=== PATIENT | female | born 1985 | race Caucasian/White ===

== ENCOUNTER → 2018-05-28 10:20 | Outpatient (CLI) | payer SELFPAY ==
[2018-05-28 15:47] LABS: Chlamydia Trachomatis by PCR Negative (Negative); Neisserai gonorrhoeae by PCR Negative (Negative); Probe Check PASS; Sample Adequacy Control PASS; Specimen Processing Control PASS
[2018-06-02 12:11] LABS: HPV Reflexed? NOT INDICATED
== END ==
PROVIDERS: Visit Provider Obstetrics & Gynecology
DX: Z12.4 Encounter for screening for malignant neoplasm of cervix (principal); Z11.3 Encounter for screening for infections with a predominantly sexual mode of transmission
CPT/HCPCS: 87491; 87591; 88175; G0145

== ENCOUNTER → 2018-06-10 | Outpatient (CLI) | payer SELFPAY ==
[2016-07-25 12:30] VITALS: BMI 31.1
[2018-06-10 15:43] LABS: Absolute Lymphocyte Count 2.04 X10^3/ul (0.83-4.51); Absolute Neutrophil Count 4.4 X10^3/uL (2.0-7.7); Basophil# 0.01 X10^3/uL; Basophil% 0.1 % (0-1); Eosinophil# 0.07 X10^3/uL; Hematocrit 36.7 % (37-47); Hemoglobin 12.5 g/dl (12.0-15.0); Lymphocyte # 2.04 X10^3/ul (4.0); Lymphocyte % 29.7 % (19-41); Mean Corp Hgb Conc 34.1 g/gl (32-36); Mean Corpuscular Hgb 30.1 pg (27.0-32.0); Mean Corpuscular Volume 88.4 fL (81-99); Mean Platelet Vol. 11.1 fl (6.2-12.0); Monocyte# 0.39 X10^3/uL; Monocyte% 5.7 % (0-10); Neutrophil # 4.37 X10^3/uL (2.7-7.7); Neutrophil % 63.5 % (47-70); Platelet Count 221 K/mm3 (150-450); RBC Distribution Width CV 11.9 % (11.6-14.6); RBC Distribution Width SD 37.7 fl (35.1-43.9); Red Blood Count 4.15 M/mm3 (4.2-5.4); White Blood Count 6.9 K/mm3 (4.4-11.0)
[2018-06-10 15:44] LABS: Color, Urine Yellow (Yellow); Glucose, Dipstick Normal (Normal); Ketone-Dipstick Negative (Negative); Leukocyte Esterase-Dipstick Negative /ul (Negative); Nitrite-Dipstick Negative (Negative); Occult Blood-Urine 25 /ul (Negative); Protein-Dipstick Negative (Negative); Specific Gravity, Urine 1.015 (1.002-1.030); Urine Bilirubin Dipstick Negative (Negative); Urine Clarity Clear (Clear); Urine Urobilinogen Normal (Normal)
[2018-06-10 15:46] LABS: POSITIVE COUNT NO; POSITIVE DIFFERENTIAL NO; POSITIVE MORPHOLOGY NO
[2018-06-10 16:08] LABS: COTININE Drug Screen Negative (<200 ng/mL)
[2018-06-10 16:09] LABS: Amphetamine Urine VISTA NEGATIVE (<1000 ng/mL); Barbiturate Urine VISTA NEGATIVE (< 200 ng/mL); Benzodiazepine Urine VISTA NEGATIVE (< 200 ng/mL); Cocaine Urine VISTA NEGATIVE (< 300 ng/mL); Ecstacy Urine VISTA NEGATIVE (< 500 ng/mL); Methadone Urine VISTA NEGATIVE (< 300 ng/mL); PCP Urine VISTA NEGATIVE (< 25 ng/mL); THC Urine VISTA NEGATIVE (< 50 ng/mL); Vista UDS pH Range 7
[2018-06-10 16:44] LABS: Thyroid Stim Hormone (TSH) 0.83 uIU/mL (0.358-3.74)
[2018-06-10 17:08] LABS: HIV - WCH Non-Reactive (Nonreactive); Rubella IgG 327.5 IU/mL; Vitamin D,25 Hydroxy 28.9 ng/mL (29.95-100.01)
[2018-06-12 15:58] LABS: HEPATITIS B SURFACE AG Negative (Negative); Hep C Antibodies 0.1 s/co ratio (0.0-0.9)
[2018-06-13 04:55] LABS: Prenatal RPR NONREACTIVE (NONREACTIVE)
== END | disposition home or self-care (01) ==
LOC: WOBLAB 14:49
PROVIDERS: Visit Provider Obstetrics & Gynecology
DX: Z34.81 Encounter for supervision of other normal pregnancy, first trimester (principal)
CPT/HCPCS: 36415; 80307; 81002; 82306; 84443; 85025; 86703; 86762; 86803; 87340

== ENCOUNTER → 2018-09-24 | Outpatient (CLI) | payer SELFPAY ==
[2018-09-24 13:44] LABS: Hematocrit 34.2 % (37-47); Hemoglobin 11.5 g/dL (12.0-15.0); Mean Corp Hgb Conc 33.6 g/dL (32-36); Mean Corpuscular Hgb 31.4 pg (27.0-32.0); Mean Corpuscular Volume 93.4 fL (81-99); Mean Platelet Vol. 10.7 fl (6.2-12.0); Platelet Count 211 K/mm3 (150-450); RBC Distribution Width CV 11.9 % (11.6-14.6); RBC Distribution Width SD 40.4 fl (35.1-43.9); Red Blood Count 3.66 M/mm3 (4.2-5.4); White Blood Count 7.9 K/mm3 (4.4-11.0)
[2018-09-24 13:56] LABS: ALB/GLOB Ratio 0.7 RATIO (0.9-2.4); AST(SGOT) 19 U/L (15-37); Alanine Aminotransfer ALT/SGPT 13 U/L (13-56); Albumin, Serum 2.8 g/dL (3.2-5.0); Alkaline Phosphatase 56 U/L (45-117); Anion Gap 5 (5-15); BUN 10 mg/dL (7-18); BUN/Creat Ratio 18.7 RATIO (10-20); Calcium,Total 8.4 mg/dL (8.5-10.1); Chloride 105 mmol/L (98-107); Creatinine, Serum 0.53 mg/dL (0.55-1.02); EST Glomerular Filtration Rate 141 mL/min (>60); Est Glom Filt Rate - Afr Amer 170 mL/min (>60); Globulin 3.8 g/dL (2.2-4.2); Glucose 91 mg/dL (74-106); Glucose Challenge Gest 1H 50g 91 mg/dL (70-140); Potassium 3.6 mmol/L (3.5-5.1); Protein, Total 6.6 g/dL (6.4-8.2); Sodium Level 137 mmol/L (136-145)
[2018-09-24 14:02] LABS: Protein, Urine (Random) 8.7 mg/dL (<11.9)
== END | disposition home or self-care (01) ==
LOC: WOBLAB 10:47
PROVIDERS: Visit Provider Obstetrics & Gynecology
DX: Z34.82 Encounter for supervision of other normal pregnancy, second trimester (principal)
CPT/HCPCS: 36415; 80053; 82570; 82950; 84156; 85027

== ENCOUNTER → 2018-11-28 | Outpatient (CLI) | payer SELFPAY ==
[2018-11-28 16:25] LABS: Protein, Urine (Random) 46.9 mg/dL (<11.9)
[2018-11-28 17:06] LABS: Hematocrit 35.4 % (37-47); Hemoglobin 11.4 g/dL (12.0-15.0); Mean Corp Hgb Conc 32.2 g/dL (32-36); Mean Corpuscular Hgb 30.2 pg (27.0-32.0); Mean Corpuscular Volume 93.9 fL (81-99); Mean Platelet Vol. 11.1 fl (6.2-12.0); Platelet Count 204 K/mm3 (150-450); RBC Distribution Width CV 12.9 % (11.6-14.6); RBC Distribution Width SD 44.2 fl (35.1-43.9); Red Blood Count 3.77 M/mm3 (4.2-5.4); White Blood Count 8.6 K/mm3 (4.4-11.0)
[2018-11-28 17:17] LABS: ALB/GLOB Ratio 0.7 RATIO (0.9-2.4); AST(SGOT) 20 U/L (15-37); Alanine Aminotransfer ALT/SGPT 14 U/L (13-56); Albumin, Serum 2.6 g/dL (3.2-5.0); Alkaline Phosphatase 68 U/L (45-117); Anion Gap 7 (5-15); BUN 9 mg/dL (7-18); BUN/Creat Ratio 15.3 RATIO (10-20); Calcium,Total 8.9 mg/dL (8.5-10.1); Chloride 105 mmol/L (98-107); Creatinine, Serum 0.59 mg/dL (0.55-1.02); EST Glomerular Filtration Rate 126 mL/min (>60); Est Glom Filt Rate - Afr Amer 153 mL/min (>60); Globulin 3.6 g/dL (2.2-4.2); Glucose 100 mg/dL (74-106); Potassium 3.4 mmol/L (3.5-5.1); Protein, Total 6.2 g/dL (6.4-8.2); Sodium Level 140 mmol/L (136-145); Uric Acid 4.5 mg/dL (2.6-6.0)
== END | disposition home or self-care (01) ==
PROVIDERS: Visit Provider Obstetrics & Gynecology
DX: O13.9 Gestational [pregnancy-induced] hypertension without significant proteinuria, unspecified trimester (principal); Z36.85 Encounter for antenatal screening for Streptococcus B; Z3A.00 Weeks of gestation of pregnancy not specified
CPT/HCPCS: 36415; 80053; 82570; 84156; 84550; 85027; 87081

== ENCOUNTER 2018-12-22 09:57 | Inpatient (IN) | payer SELFPAY ==
[2018-12-22] VITALS (18 sets, daily range): BP systolic 103–138; BP diastolic 46–83; PULSE 65–108; RESP 11–18; TEMP 35.8–37.2; O2SAT 96–99; BMI 32.2
[2018-12-22] MEDS: Lactated Ringers 1,000 ML 999 ML IV (10:15)
[2018-12-22 10:27] LABS: Absolute Lymphocyte Count 1.54 X10^3/uL (0.83-4.51); Absolute Neutrophil Count 5.9 X10^3/uL (2.0-7.7); Basophil# 0.02 X10^3/uL; Basophil% 0.2 % (0-1); Eosinophil# 0.06 X10^3/uL; Eosinophils% 0.7 % (0-5); Hemoglobin 11.6 g/dL (12.0-15.0); Lymphocyte # 1.54 X10^3/ul (4.0); Lymphocyte % 18.8 % (19-41); Mean Corp Hgb Conc 33.1 g/dL (32-36); Mean Corpuscular Hgb 30.9 pg (27.0-32.0); Mean Corpuscular Volume 93.1 fL (81-99); Mean Platelet Vol. 11.1 fl (6.2-12.0); Monocyte# 0.65 X10^3/uL; Monocyte% 7.9 % (0-10); NRBC Flagged by Analyzer 0 % (0-5); Neutrophil # 5.88 X10^3/uL (2.7-7.7); Platelet Count 165 K/mm3 (150-450); RBC Distribution Width CV 13.3 % (11.6-14.6); RBC Distribution Width SD 45.8 fl (35.1-43.9); Red Blood Count 3.76 M/mm3 (4.2-5.4); White Blood Count 8.2 K/mm3 (4.4-11.0)
[2018-12-22] MEDS: Lactated Ringers 1,000 ML 150 ML IV (11:40)
[2018-12-22] MEDS: Sodium Citrate/Citric Acid 30 ML UDC PO (11:50)
[2018-12-22] MEDS: Cefazolin 2 GM in 0.9% Normal Saline 100 ML IV (12:05)
--- NOTE | 2018-12-22 12:10 | HP.PCM_ITS ---
- Problem List (1) 39 weeks gestation of Status: Acute History Date of Admission: 12/22/18 Final SONAM: 12/24/18 Gestational age: 41 Weeks and 6 Days History of this : This is a 33 year-old, G [3], P [2001], at 39 weeks gestational age presenting for scheduled repeat section. 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 % (Auto) 7.9 Eos % (Auto) 0.7 Baso % (Auto) 0.2 Absolute Neuts (auto) 5.9 Absolute Lymphs (auto) 1.54 Nucleated RBC % 0 Blood Type A POSITIVE Antibody Screen NEGATIVE Course Did the patient receive Yes care? Labs Blood Type: A RH: POSITIVE RPR/VDRL/Syphilis Nonreactive Rubella status Immune HbSAg Negative Date Done: 06/10/18 Chlamydia Negative Gonorrhea Negative HIV/AIDS Non-Reactive Group B Strep: Negative Current Obstetrical History Gestational Diabetes No Incompetent Cervix No Infertility No IUGR No Macrosomia No Hypertension/Pre-eclampsia No Placenta Previa/Abruption No PTL/PROM No Uterine anomaly No Oligohydramnios No Polyhydramnios No Multiple gestation No Past Medical History Asthma No Diabetes No Hypertension No Heart disease No Mitral valve prolapse No Neurologic/Seizure disorder/ No Migraines Kidney disease No Liver disease No Varicosities No Clotting disorders/Hx of DVT No Thyroid Dysfunction No Other medical diseases No Psychiatric disorders No Major trauma No Abnormal PAP smear No Sleep apnea No Mammogram in the last 2 years No Enter DETAILS of medical bladder adhesions- history Social History Marital Status: Alleged father antoinette [place] Hx Smoking No Smoking Status Never smoker Expected Delivery Method: Scheduled Section, Repeat Section Number of Visits: 14 Physical Exam Vitals: AVSS General: Alert, Oriented x3, Cooperative, No apparent distress HEENT: Atraumatic, Normocephalic Cardiovascular: Regular rate, Regular Rhythm, Normal S1, Normal S2 Lungs: Clear to auscultation, Normal air movement Abdomen: Soft, Non Tender, Non-Distended Neurological: Neuro grossly intact COMPENSATION AND BENEFITS ADMINISTRATOR: Normal external genitalia Estimated gestational size: Appropriate for gestational size Presentation: Cephalic Assessment/Plan All Active Problems Delivered by section (Acute) 39 weeks gestation of (Acute) Left breast mass (Resolved) This is a 33 year-old, G 3 P 2001, at 39 4/7 weeks gestational age. Proceed with repeat section as scheduled. Consents previously signed, reviewed.
--- NOTE | 2018-12-22 13:05 | PCM.OPRPT ---
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 Procedural risks, benefits, indication were reviewed preoperatively. Informed consent obtained. Indications for : Repeat Elective Description of Procedure: The patient was taken to the operating room and spinal analgesia was administered. She is placed in a dorsal supine position with left lateral tilt. The perineum and abdomen were prepped and draped in sterile fashion. And the spinal was found to be adequate. A Pfannenstiel incision was made using a scalpel and brought down to incise the subcutaneous tissue and rectus fascia at the midline. Subcutaneous tissue was bluntly dissected off the fascia laterally. The fascial incision was dissected laterally and cephalad using curved Albert scissors. The superior leaflet of the rectus fascia was grasped using Reina clamps and bluntly dissected and sharply dissected from the underlying rectus muscle. In a similar fashion the inferior rectus fascia was dissected from the underlying muscle. The rectus muscles were bluntly at the midline. The peritoneum was identified and entered bluntly. The bladder blade was placed into the abdomen and the vesicouterine peritoneal fold identified. There were lateral peritoneal adhesions ending from the bladder flap to to the left adnexa. These were sharply and bluntly dissected. The vesico uterine peritoneal fold the fold was incised and a bladder flap created. Bladder blade was then repositioned to the abdomen. A low transverse hysterotomy was made using the [Metzenbaum scissors] to level of the membranes. The hysterotomy was extended bluntly cephalad and caudad. The membranes were then ruptured revealing clear fluid. The head was elevated and brought to the level of the hysterotomy and the infant delivered revealing vigorous [female] infant. The cord was doubly clamped and cut after 30 seconds. The was passed to awaiting [nursery personnel]. The placenta was [expressed] from the uterus and appeared intact on inspection with what appeared to be old clot extruded and an approximately 5 cm round retroplacental clot.The uterus was cleared of debris and gauze curettage formed for adherent membranes to the inferior lower uterine segment. Membranes were removed entirely. The hysterotomy was then repaired using 0 Vicryl running lock suture. A second imbricating layer was also placed for additional hemostasis. Bleeding at the vesicoperitoneal fold was controlled using Surgicel powder. The bladder blade was removed. The anterior cul-de-sac was cleared of debris. The peritoneum and rectus muscles were reapproximated using 2-0 Vicryl running suture. The rectus fascia was closed using 0 Vicryl running suture. The subcutaneous tissue was sponge irrigated and small capillary bleeding controlled using the Bovie device. The subcutaneous tissue was reapproximated using 2-0 Vicryl. The skin was closed using 4-0 Monocryl subcuticularly. A Mepilex occlusive dressing was placed over the incision. The fundus was firm. The patient was then transferred to the recovery room without complication. Sponge, instrument, and needle counts were correct ?2. Amniotic Membrane Rupture Type: Artificial Amniotic Fluid Description: Clear Placenta Disposition: [facility] Specimen(s) sent to pathology: Placenta Drain: Borrego to straight drain Fluids Replaced: 1200 mL Cord Entanglement: - - Around left arm Nuchal Cord Compression: Without compression Cord Vessel Description: 3 Vessels Esitmated Blood Loss (ml): 800 Gender: Female (1 minute): 9 (5 minute): 9 Delayed cord clamping: Yes Antibiotic Given: Ancef 2 grams IV x1 Pt instructed on risks of surgery: Bleeding, Anesthesia Risks, Infection, Need for Future C-Sections, Injury to surrounding structure(s) including bowel and bladder Complications: None - Admit VTE Documentation VTE Present on Admission: No VTE Mechan Device Prophylaxis: SCD's VTE Pharm Prophylaxis ordered?: No
--- NOTE | 2018-12-22 13:22 | PLAC_PTH ---
PATIENT: NAN CALLAHAN LOC: [facility] U#:[id number] AGE/SX: 33/F ROOM: WP008 RE12/22/[address]: Dr. Margarita Delgado MD : 1985 BED: 1 DIS: 12/24/2018 SPEC #: [id number] RECD: 12/22/18 15:35 STATUS: AMANDA REQ #: [id number] ERIN: 12/22/18 13:[address]: Margarita Yu DEPT: SURGICAL PATHOLOGY RECD BY: Chris Frazier ENTERED: 12/23/18 08:49 SP TYPE: PLACENTA OTHR DR: No Primary Care Phys Tissues: Placenta, NOS Procedures: Surgery Specimen Level V HEADER OPERATION: section PRE-OP DIAGNOSIS: History second trimester bleed with retro placenta clot TISSUE SUBMITTED: Placenta MICROSCOPIC DIAGNOSIS Placenta: Placental disc - third trimester placenta (553 gm). - Focal area of intraparenchymal hemorrhage (1.5 cm in greatest dimension). - Submembranous blood clots, surface (10 x 5 cm). - A few separate blood clots (15 gm). Membranes - no pathologic diagnosis. Umbilical cord - three blood vessels and no pathologic diagnosis. SJ:jing 12/25/18 MICROSCOPIC DESCRIPTION Slides are reviewed. GROSS DESCRIPTION SPECIMEN: PLACENTA / CLINICAL INFORMATION: A. Weight: 3.064 kg B. Gestational Age: 39 weeks C. Sex: Female PLACENTAL WEIGHT (POST FIXATION): 553 gm PLACENTAL DIMENSIONS: 20 x 16 x 3.5 cm PLACENTAL SHAPE: Usual ovoid PLACENTAL WEIGHT FOR GESTATIONAL AGE: Within 10-99th percentile MEMBRANES - Present A. Insertion: Marginal B. Site of rupture from edge: At edge of placental disc C. Color of membrane: Taylor-medina D. Abnormalities: None UMBILICAL CORD - Present A. Color: Taylor-medina B. Insertion: Paracentral C. Length: 24 cm D. Diameter: 1 to 1.2 cm E. Number of vessels: Three F. Abnormalities: end of the umbilical cord shows increased spiraling. PLACENTAL DISC - Present A. Color of surface: Taylor-medina B. surface abnormalities: It shows submembranous blood clots measuring 10 x 5 cm. C. Maternal cotyledons: Intact with minimal tears D. Attached retro placental clot: No clot E. Cut surface: Dark red and spongy F. Lesions: Sections reveal a taylor, hemorrhagic area measuring 1.5 cm in greatest dimension. G. Separate clot: Blood clots in aggregate weighs 15 gm and measures 10 x 3 x 3 cm SECTIONS SUBMITTED: 1. Membrane roll 2. Cord, maternal end 3. Cord, end 4. Placental disc, and maternal surfaces, lesion 5. Placental disc, and maternal surfaces, area of placenta with submembranous blood clot 6. Placental disc, and maternal surfaces SJ:jing 12/24/18 TC:5 CPT: 47923
[2018-12-22] MEDS: Oxytocin 30 units/NS 500 ml 30 UNITS/500 ML IV.SOLN 167 UNITS IV (13:30)
[2018-12-22] MEDS: Lactated Ringers 1,000 ML 100 ML IV (16:30)
[2018-12-22] MEDS: Ketorolac 30 MG/ML Syringe IV (18:53)
[2018-12-23] VITALS (10 sets, daily range): BP systolic 104–125; BP diastolic 58–78; PULSE 80–89; RESP 14–18; TEMP 36.2–36.8; O2SAT 96–100
[2018-12-23] MEDS: Ketorolac 30 MG/ML Syringe IV ×4 (00:16→18:25)
[2018-12-23] MEDS: Lactated Ringers 1,000 ML 100 ML IV (02:21)
[2018-12-23 07:48] LABS: Hematocrit 32.2 % (37-47); Hemoglobin 10.8 g/dL (12.0-15.0); Mean Corp Hgb Conc 33.5 g/dL (32-36); Mean Corpuscular Hgb 32.1 pg (27.0-32.0); Mean Corpuscular Volume 95.8 fL (81-99); Mean Platelet Vol. 11.2 fl (6.2-12.0); Platelet Count 133 K/mm3 (150-450); RBC Distribution Width CV 13.6 % (11.6-14.6); RBC Distribution Width SD 47.8 fl (35.1-43.9); Red Blood Count 3.36 M/mm3 (4.2-5.4); White Blood Count 7.2 K/mm3 (4.4-11.0)
--- NOTE | 2018-12-23 08:46 | PCM.PN.OB ---
Patient Problems: Active and Suspected Problems 39 weeks gestation of (Acute) Subjective: No issues overnight. Infant has tongue-tie, not nursing well. Ruthann is sore this morning. Passing flatus, oob and ambulating without difficulty. Denies heavy lochia. - Physical Exam Vitals/I&O's: Vital Signs Temp Pulse Resp BP Pulse Ox 97.8 F 87 18 104/58 L 98 12/23/18 04:00 12/23/18 04:00 12/23/18 06:00 12/23/18 04:00 12/23/18 06:00 Oxygen Delivery Method Room Air Weight: 87.9 kg Body Mass Index (BMI) 32.2 Intake and Output for Last 24 Hours 12/21/18 12/22/18 12/23/18 23:59 23:59 23:59 Intake Total 1647.5 / 1647.5 985 / 985 Output Total 425 / 425 800 / 800 Balance 1222.5 / 1222.5 185 / 185 General: Alert, Oriented x3, Cooperative, No apparent distress HEENT: Atraumatic, Normocephalic Lungs: Clear to auscultation, Normal air movement Cardiovascular: Regular rate, Regular Rhythm, Normal S1, Normal S2 Abdomen: Soft, Non Tender, Non-Distended Extremities: No edema, No Calf Tenderness Neurological: Neuro grossly intact Psych/Mental Status: Normal Affect, Appropriate, Alert and oriented to time, place, person, mood and affect Laboratory Results 12/22/18 10:15: WBC 8.2, RBC 3.76 L, Hgb 11.6 L, Hct 35.0 L, MCV 93.1, MCH 30.9, MCHC 33.1, RDW Std Deviation 45.8 H, RDW Coeff of Nae 13.3, Plt Count 165, MPV 11.1, Immature Gran % (Auto) 0.400, Neut % (Auto) 72.0 H, Lymph % (Auto) 18.8 L, [place] % (Auto) 7.9, Eos % (Auto) 0.7, Baso % (Auto) 0.2, Absolute Neuts (auto) 5.9, Absolute Lymphs (auto) 1.54, Nucleated RBC % 0 12/22/18 10:15: Blood Type A POSITIVE, Antibody Screen NEGATIVE 12/23/18 07:30: WBC 7.2, RBC 3.36 L, Hgb 10.8 L, Hct 32.2 L, MCV 95.8, MCH 32.1 H, MCHC 33.5, RDW Std Deviation 47.8 H, RDW Coeff of Nae 13.6, Plt Count 133 L, MPV 11.2 Current Medications Acetaminophen (Tylenol) 1,000 mg PO Q8H PRN PRN Reason: Pain Score 1-3/10 Bisacodyl (Dulcolax) 10 mg RECTAL UD PRN PRN Reason: If no BM Hydrocortisone (Hytone) 1 applic TOPICAL TID PRN PRN; Protocol PRN Reason: Discomfort Lactated Ringer's () 1,000 mls @ 100 mls/hr IV .Q10H [facility] Last Admin: 12/23/18 02:21 Dose: 100 mls/hr Documented by: Naloxone HCl 4 mg/ Dextrose 504 mls @ 0 mls/hr IV .Q0M PRN; Protocol PRN Reason: Respiratory depression Ibuprofen (Motrin) 600 mg PO Q6H PRN PRN PRN Reason: Pain Score 1-3/10 Ketorolac Tromethamine (Toradol) 30 mg IV Q6 [facility] Stop: 12/24/18 12:01 Last Admin: 12/23/18 07:30 Dose: 30 mg Documented by: Methylergonovine Maleate (Methergine) 0.2 mg IM X1 PRN PRN Reason: Uterine Atony Nalbuphine HCl (Nubain) 5 mg IV Q3H PRN PRN PRN Reason: ITCHING Stop: 12/23/18 13:49 Naloxone HCl (Narcan) 0.02 mg IV Q1M PRN PRN Reason: RR <10 and pt unresponsive Ondansetron HCl (Zofran) 4 mg IV Q4H PRN PRN PRN Reason: Nausea Oxycodone HCl (Oxyir) 5 - 10 mg PO Q4H PRN PRN PRN Reason: Pain Score 4-10/10 Multivit/Folic Acid/Iron (Prenatabs Fa) 1 tablet PO DAILY [facility] Prochlorperazine Edisylate (Compazine Iv) 10 mg IV Q6H PRN PRN PRN Reason: NAUSEA Senna/Docusate Sodium (Senokot-S, Ines-Colace) 0 tablet PO DAILY PRN PRN Reason: Constipation Simethicone (Mylicon) 80 mg PO PCHS PRN PRN Reason: Indigestion/stomach pain Sodium Chloride () 5 - 15 ml IV UD PRN PRN Reason: SALINE FLUSH Medical Necessity - Tobacco Use Smoking Status: Never smoker Assessment/Plan All Active Problems Delivered by section (Acute) 39 weeks gestation of (Acute) Left breast mass (Resolved) This is a 33 year-old, G 3 P3003 POD#1 s/p RLTCS doing well. -Routine postop care -Rh positive, Rubella immune -, outpatient ENT consultation pending
[2018-12-23] MEDS: Senna/Docusate Sodium 1 Tablet PO (12:37)
[2018-12-23] MEDS: Prenatal Vits Tablet 1 TABLET PO (12:37)
[2018-12-23] MEDS: 0.9% Saline Lock 10 ML Syringe IV ×2 (12:38→18:24)
[2018-12-24] MEDS: Ketorolac 30 MG/ML Syringe IV ×3 (00:52→12:11)
[2018-12-24] MEDS: 0.9% Saline Lock 10 ML Syringe IV ×3 (00:53→12:12)
[2018-12-24 02:05] VITALS: BP 107/50; PULSE 78; RESP 16
[2018-12-24] MEDS: oxyCODONE 5 MG Tablet PO ×3 (04:36→12:11)
[2018-12-24 08:00] VITALS: BP 117/74; PULSE 78; RESP 18; TEMP 36.6; O2SAT 98
[2018-12-24] MEDS: Senna/Docusate Sodium 1 Tablet PO (08:20)
[2018-12-24] MEDS: Prenatal Vits Tablet 1 TABLET PO (10:28)
--- NOTE | 2018-12-24 15:15 | PCM.DCCSEC ---
Discharge Diet: No Restrictions Discharge Activity: Return to Normal Activity, May not drive while taking narcotic pain medications., May Shower, - - No tub bath May resume sexual activity in: 4-6 weeks Lifting Restrictions: 10-20 lb Suture Line Care: Avoid Pulling/Pushing Remove Dressing in (days):: 3 Cleanse incision/area with: Soap & Water Additional Instructions: If you experience any of the following, contact your healthcare provider. Bleeding that soaks a pad every hour for 2 hours Fever 100.4 or higher Unrelieved incision or abdominal pain Swelling, redness, discharge or bleeding from your incision or episiotomy site Your incision begins to separate Problems urinating (including inability to urinate or burning while urinating). Visual changes Severe headache Flu-like symptoms Pain or redness in one of both of your breasts Pain, warmth, tenderness or swelling in your legs, especially the calf area Frequent nausea and vomiting Symptoms of depression or anxiety If you experience any of the following, call 911 or go to the nearest Emergency Room. Chest pain Problems breathing Seizure activity Partial or complete paralysis of a body part, slurred speech, weakness or drooping of the face, or a sudden inability to walk or hold your balance Allergies/Adverse Reactions: Allergies No Known Allergies Allergy (Verified 03/06/16 07:06) Medications to take at Discharge Vits [Prenatabs FA ] 1 tablet PO DAILY 03/06/16 Ferrous Sulfate [Iron] 325 mg PO DAILY 12/22/18 Ibuprofen [Motrin] 600 mg PO Q8H PRN PRN #30 tab 12/24/18 Oxycodone [Oxyir] 1 tab BC Q6H PRN 7 Days #20 tab 12/24/18 Senna/Docusate Sodium [Senokot-S] 1 - 2 tab PO DAILY PRN #60 tab 12/24/18 The following prescriptions were given: Ibuprofen [Motrin] 600 mg PO Q8H PRN PRN #30 tab PRN Reason: Pain Score 1-3/10 Transmission Status: Received by [id number] Oxycodone [Oxyir] 1 tab BC Q6H PRN 7 Days #20 tab PRN Reason: Pain Score 4-10/10 Transmission Status: Received by [id number] Senna/Docusate Sodium [Senokot-S] 1 - 2 tab PO DAILY PRN #60 tab PRN Reason: Constipation Transmission Status: Received by [id number] Follow-Up: Call to make an appointment with your doctor for an incision check in 1-2 weeks. You will also need a 6 week post- follow up appointment. Test results from this visit will be discussed in further detail at your follow-up appointment, if applicable. Please Follow Up With: Margarita Pyle MD When: 2 weeks for incision check Primary Care Physician: Care Physician,No Primary [Primary Care Provider] -
[2018-12-25 15:05] LABS: Pathology Specimen OB SEE PATHOLOGY REPORT
== END 2018-12-24 12:25 | disposition home or self-care (01) | DRG 788 ==
PROVIDERS: Admitting Provider Obstetrics & Gynecology; Referring Provider Obstetrics & Gynecology; Visit Provider Obstetrics & Gynecology
PROC: 10D00Z1 Extraction of Products of Conception, Low, Open Approach (ICD-10-PCS; CPT 59514; principal; 2018-12-22 11:45)
DX: O82 Encounter for cesarean delivery without indication (principal); Z3A.39 39 weeks gestation of pregnancy; Z37.0 Single live birth; O69.81X0 Labor and delivery complicated by cord around neck, without compression, not applicable or unspecified
CPT/HCPCS: 85025; 85027; 86850; 86900; 86901; 88307; 99218; J7120; A4216; G0378; J2405

== ENCOUNTER → 2020-04-29 09:17 | Outpatient (CLI) | payer SELFPAY ==
[2018-12-22 10:03] VITALS: BMI 32.2
[2020-04-29 11:28] LABS: Absolute Lymphocyte Count 1.64 X10^3/uL (0.83-4.51); Absolute Neutrophil Count 3.8 X10^3/uL (2.0-7.7); Basophil# 0.03 X10^3/uL; Basophil% 0.5 % (0-1); Eosinophil# 0.07 X10^3/uL; Eosinophils% 1.2 % (0-5); Hematocrit 39.8 % (37-47); Hemoglobin 12.8 g/dL (12.0-15.0); Lymphocyte # 1.64 X10^3/ul (4.0); Mean Corp Hgb Conc 32.2 g/dL (32-36); Mean Corpuscular Hgb 29.6 pg (27.0-32.0); Mean Corpuscular Volume 91.9 fL (81-99); Mean Platelet Vol. 11.2 fl (6.2-12.0); Monocyte# 0.34 X10^3/uL; Monocyte% 5.8 % (0-10); NRBC Flagged by Analyzer 0 % (0-5); Neutrophil # 3.75 X10^3/uL (2.7-7.7); Neutrophil % 64.2 % (47-70); Platelet Count 214 K/mm3 (150-450); RBC Distribution Width SD 40.4 fl (35.1-43.9); Red Blood Count 4.33 M/mm3 (4.2-5.4); White Blood Count 5.9 K/mm3 (4.4-11.0)
[2020-04-29 12:16] LABS: HIV - WCH Non-Reactive (Nonreactive); Hepatitis B Surface Antigen Non-Reactive (Nonreactive); Hepatitis C Antibody Non-Reactive (Nonreactive); Rubella IgG Reactive (Nonreactive); Syphilis Antibodies Non-reactive
[2020-05-02 20:07] LABS: Chlamydia By Nucleic Acid AMP Negative (Negative)
[2020-05-02 20:52] LABS: Gonococcus By Nucleic Acid AMP Negative (Negative)
== END ==
PROVIDERS: Visit Provider Student in an Organized Health Care Education/Training Program
DX: Z32.01 Encounter for pregnancy test, result positive (principal)
CPT/HCPCS: 36415; 85025; 86703; 86762; 86803; 87086; 87340; 87491; 87591

== ENCOUNTER 2020-06-23 08:30 | Day surgery (SDC) | payer SELFPAY ==
[2018-12-22 10:03] VITALS: BMI 32.2
[2020-06-23] VITALS (7 sets, daily range): BP systolic 109–123; BP diastolic 73–81; PULSE 63–92; RESP 16–18; TEMP 36.6–37.7; O2SAT 98–100; BMI 27.4
[2020-06-23 09:04] LABS: Hematocrit 39.8 % (37-47); Hemoglobin 13.2 g/dL (12.0-15.0); Mean Corp Hgb Conc 33.2 g/dL (32-36); Mean Corpuscular Hgb 30.3 pg (27.0-32.0); Mean Corpuscular Volume 91.3 fL (81-99); Mean Platelet Vol. 10.3 fl (6.2-12.0); Platelet Count 200 K/mm3 (150-450); RBC Distribution Width CV 11.8 % (11.6-14.6); RBC Distribution Width SD 39.7 fl (35.1-43.9); Red Blood Count 4.36 M/mm3 (4.2-5.4); White Blood Count 6.1 K/mm3 (4.4-11.0)
[2020-06-23] MEDS: Lactated Ringers 1,000 ML 100 ML IV ×2 (09:14→11:53)
--- NOTE | 2020-06-23 10:28 | PCM.HPOB.BLA ---
History and Physical Date of Admission: 06/23/20 HPI: 34-year-old G4, P3 presenting for suction D&C for spontaneous . SAB diagnosed on 06/21/2021 on ultrasound. Patient had due date of 12/08/2020, was only measuring 11 weeks and 2 days on ultrasound this week when should have measured 15/5. On earlier ultrasound as well as this some noted frontal bossing of the calvarium was noted. Ultrasound on this day was planned for follow-up to then determine for MFM consult or not. However on ultrasound no heart rate detected by instrument technician apprentice and confirmed by myself. Options for management were discussed, patient elected for suction dilation and curettage. This is complicated by: spontaneous Obstetrical History SONAM 12/08/20 by LMP G1: 2014 c/s G2: 07/26/16 ([facility]M) G3: 12/22/18 Female ([facility]M) G4: curent Past Medical History Hypertension Medications PNV Past Surgical History section x3 Social History Tobacco use: Denies Alcohol use: Denies Illicit drug use: Denies Allergies No known drug allergies Review of Systems General: alert and oriented HEENT: _denies change of vision Heart/lungs: _denies CP, SOB GI: _denies nausea, vomiting, dysuria, diarrhea MSK: _denies calf pain, tenderness Physical Exam Vital Signs Temp Pulse Resp BP Pulse Ox 06/23/20 09:08 99.8 F H 92 18 116/81 H 100 General: a&o x3, NAD HEENT: normocephalic, atraumatic Cardio: no JVD Resp: no increased work in breathing Abdomen: soft, gravid, nontender Extremities: No edema Labs Microbiology 06/23/20 08:50 SARS-CoV-2 Antigen (Rapid) - Final Interface Orders Laboratory Tests 06/23/20 06/23/20 Range/Units 09:00 09:00 WBC 6.1 (4.4-11.0) K/mm3 RBC 4.36 (4.2-5.4) M/mm3 Hgb 13.2 (12.0-15.0) g/dL Hct 39.8 (37-47) % MCV 91.3 (81-99) fL MCH 30.3 (27.0-32.0) pg MCHC 33.2 (32-36) g/dL RDW Std Deviation 39.7 (35.1-43.9) fl RDW Coeff of Nae 11.8 (11.6-14.6) % Plt Count 200 (150-450) K/mm3 MPV 10.3 (6.2-12.0) fl Blood Type A POSITIVE Antibody Screen NEGATIVE Assessment & Plan 34-year-old G4, P3 presenting for suction D&C for spontaneous . All risks, benefits, risks, alternatives were discussed with the patient. Risks include but are not limited to: Risk of bleeding to the point of transfusion, infection, injury to surrounding tissue including bowel or bladder, uterine perforation, VTE, ICU admission. Patient aware and consented. Patient declined any genetic or Anora testing.
--- NOTE | 2020-06-23 10:30 | POC_PTH ---
PATIENT: NAN CALLAHAN LOC: [facility] [place] U#:[id number] AGE/SX: 34/F ROOM: RE06/23/[address]: Dr. Mary Jane Patel DO : 1985 BED: DIS: 06/23/2020 SPEC #: [id number] RECD: 06/23/20 13:54 STATUS: AMANDA REJaydon #: [id number] ERIN: 06/23/20 10:[address]: Mary Jane Patel DEPT: SURGICAL PATHOLOGY RECD BY: Nedra Tolbert ENTERED: 06/24/20 08:10 SP TYPE: PROD CONC OTHR DR: No Primary Care Phys Tissues: Product of conception, NOS Procedures: Surgery Specimen Level IV HEADER OPERATION: Suction dilation and curettage PRE-OP DIAGNOSIS: Spontaneous TISSUE SUBMITTED: Products of conception MICROSCOPIC DIAGNOSIS Endometrium, curettage: Chorionic villi, decidualized stroma and trophoblastic cells consistent with products of conception. AM:jing 06/27/2020 MICROSCOPIC DESCRIPTION Slides are reviewed. GROSS DESCRIPTION Received in fixative is one container labeled with the patient's name and designated products of conception. The specimen consists of multiple irregular and hemorrhagic fragments of soft tissue that in aggregate measure 8 x 7 x 0.8 cm. The specimen is totally submitted in one cassette. / AM:jing 06/24/20 TC:5 CPT: 79244
--- NOTE | 2020-06-23 10:41 | PCM.OPRPT ---
Report of Operation Date of Procedure: 06/23/20 Pre-Operative Diagnosis: Spontaneous Post-Operative Diagnosis: Spontaneous Surgery/Procedure Performed:: Suction dilation and curettage Description of Surgical Findings:: Normal-appearing external genitalia. Products of conception removed. Type of Anesthesia:: MAC Specimen's removed: Products of conception Estimated Blood Loss (mL): 100 cc Fluids Replaced: 650 cc Description of Procedure: Indications/risk benefits: 34-year-old with spontaneous . SONAM 12/08/2020. Diagnosed at 15/5 weeks, measuring 11/2 weeks without heart rate. Decision for suction dilation and curettage made. All risk, benefits, alternatives were discussed with the patient. Risks include but are not limited to: Risk of bleeding to the point of transfusion, infection, injury to surrounding tissue including bowel or bladder, uterine perforation, VTE, ICU admission. Patient consented. Declined Anora or genetic testing. Procedure: Patient taken to the operating room, MAC anesthesia induced. Patient placed in the dorsal lithotomy position and prepped and draped in the usual sterile fashion. Weighted speculum placed in posterior vagina and Rios retractor used to visualize the cervix. Anterior lip of the cervix grasped with Allis clamp. Cervix sequentially dilated. 11 mm curette chosen. Suction tubing covered with probe covering. Suction curettage completed in 360 degree manner until all products of conception removed. Some products of conception noted at the cervical os which were grasped with forceps and removed. Suction curettage repeated. Ultrasound utilized to confirm no further products remaining in the uterine cavity. No blood flow noted on color. Endometrial lining thin. Some oozing coming from the cervical os was noted, therefore 0.2 mg Methergine given IM. Bimanual massage completed. Oozing stopped. Allis clamp removed and weighted speculum removed. Hemostasis noted. Of the procedure all needle, lap, sponge counts correct x3. Urine output: 600 cc - Complications None - Admit VTE Documentation VTE Mechan Device Prophylaxis: SCD's
--- NOTE | 2020-06-23 10:42 | DCINST_ITS ---
Discharge Diet: No Restrictions Discharge Activity: Return to Normal Activity, May Shower May resume sexual activity in: 4-6 weeks, 3 weeks Weight Bearing Status: Weight bearing as tolerated Call your doctor if your incision/area has: Continuous Slow Oozing Call your doctor if you observe: Inability to have a bowel movement, Using more than one pad per hour, Shortness of breath, Dizziness, Calf discomfort, Uncontrolled pain Cleanse incision/area with: Soap & Water Allergies/Adverse Reactions: Allergies No Known Allergies Allergy (Verified 06/23/20 09:08) Medications to take at Discharge NK 06/22/20 Primary Care Physician: Care Physician,No Primary [Primary Care Provider] - Test Results: Test results from this visit will be discussed in further detail at your follow- up appointment, if applicable. Please Follow Up With: Mary Jane Patel DO When: 1 week
[2020-06-23] MEDS: Methylergonovine 0.2 MG/ML Ampul IM (11:14)
== END 2020-06-23 13:04 | disposition home or self-care (01) ==
LOC: SDC 08:35 → AC 08:35
PROVIDERS: Referring Provider Student in an Organized Health Care Education/Training Program; Visit Provider Student in an Organized Health Care Education/Training Program
PROC: (CPT 59812; principal; 2020-06-23 10:15)
DX: O03.9 Complete or unspecified spontaneous abortion without complication (principal); Z20.822 Contact with and (suspected) exposure to COVID-19
CPT/HCPCS: 01965; 59812; 85027; 86850; 86900; 86901; 87426; 88305; J7120; A4216

== ENCOUNTER 2020-07-28 09:53 | Day surgery (SDC) | payer SELFPAY ==
[2020-06-23 09:08] VITALS: BMI 27.4
[2020-07-28] VITALS (7 sets, daily range): BP systolic 115–144; BP diastolic 68–78; PULSE 60–76; RESP 16–61; TEMP 36.4–37.1; O2SAT 99–100; BMI 27.0
[2020-07-28 10:37] LABS: Hematocrit 39.2 % (37-47); Mean Corp Hgb Conc 33.2 g/dL (32-36); Mean Corpuscular Hgb 29.9 pg (27.0-32.0); Mean Corpuscular Volume 90.1 fL (81-99); Mean Platelet Vol. 10.9 fl (6.2-12.0); Platelet Count 197 K/mm3 (150-450); RBC Distribution Width CV 11.8 % (11.6-14.6); RBC Distribution Width SD 38.4 fl (35.1-43.9); Red Blood Count 4.35 M/mm3 (4.2-5.4); White Blood Count 5.5 K/mm3 (4.4-11.0)
[2020-07-28] MEDS: Lactated Ringers 1,000 ML 100 ML IV (10:40)
[2020-07-28 10:46] LABS: International Normalized Ratio 1.1; Prothrombin Time (Protime)PT. 13.6 SECONDS (11.7-14.9)
[2020-07-28 10:47] LABS: Partial Thromboplast Time 31.2 Seconds (24.1-36.2)
--- NOTE | 2020-07-28 11:34 | HP.PCM.OB_ITS ---
History and Physical Date of Admission: 07/28/20 Surgical History and Physical Date: 07/27/2020 Name: NAN CALLAHAN Age: 34 Date of : 1985 Nan Callahan, a 34 year old female 3 0 1 0 3, presents for Suction dilation and curettage for retained products of conception. -- Nan presents for pelvic US to following up persistent vaginal bleeding since her suction dilation and curettage on 06/23/20 for an incomplete SAB. She reports bleeding was like a light period, then spotting intermittently then last week became like a heavy period. Today she has required only 1 pad daily. Denies fever, chills, abdominal pain. Occasional mild cramping is present. [facility] MEDICATIONS HISTORY: ALLERGIES: No Known Drug Allergies Infections - Chicken pox Illnesses - none Accidents - no injuries of consequence Hospitalizations - Childbirth and see surgery Review of Systems: GENERAL - Denies fever, or chills SKIN - Denies skin changes EYES - Denies visual changes EARS - Denies difficulty hearing NOSE - Denies nasal congestion or bleeding MOUTH - Denies sore throat or difficulty swallowing NECK - Denies pain or swelling RESPIRATORY - Denies shortness of breath or wheezing CARDIOVASCULAR - Denies palpitations or chest pain GASTROINTESTINAL - Denies nausea, vomiting, diarrhea, constipation GENITOURINARY - Denies dysuria, frequency of urination, incontinence of urine MUSCULOSKELETAL - Denies joint or muscle pain NEUROLOGICAL - Denies localized numbness or weakness PSYCHIATRIC - Denies depression or anxiety ENDOCRINE - Denies heat or cold intolerance, weight loss or gain HEMATO-IMMUNOLOGIC - Denies excesive bleeding with cuts SOCIAL HISTORY: Alcohol Use - denies drinking Smoking - Never Diet - balanced Diet Lifestyle - low stress lifestyle and Exercise - regular Seat Belt Use - always Employer - [employer] 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 Drug Use - denies use of street drugs Sexual Activity - Residence - lives with Place of - [place], [place] Hours Worked - 8-10 Spouse-Sig Other Name - Uriah Spouse-Sig Other 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 06/23/2020 suction D and C ; Mary Jane Patel DO - 2. 12/22/2918 R C/S ; Margarita Delgado MD - 3. 04/17/2014 primary c/s ; [facility] 4. 07/26/2016 ; Margarita Delgado MD - PHYSICAL EXAM BP- 142/82 Sitting, Right arm, regular cuff Weight- 164.61645 lbs Height- 65.00 inch BMI:27.35 CONSTITUTIONAL - NAD, well nourished, and well developed SKIN - No rash, lesions, or ulcers HEENT - normocephalic, atraumatic, sclerae anicteric LUNGS - normal respiratory rate and rhythm ABDOMEN - Without hepatosplenomegaly, distention, masses, rebound, or guarding; normal bowel sounds; no hernias NEUROLOGICAL - normal gait, normal balance, normal motor PSYCHIATRIC - A and O to time, place, person, mood and affect ASSESSMENT/PLAN: 1. Incomplete Spontaneous Without Complication s/p D with retained POCs Reviewed US findings and advised repeat suction D Discussed D, r/b/i, consents signed and reviewed Rx Misoprostol in interim to assist with spontaneous expulsion however given thickness of strip, unlikely to expulse completely. Patient given opportunity to ask questions and questions answered to her satisfaction The visit was approximately 30 minutes in length with most of the time spent in discussion and counseling. Assessment & Plan Assessment/Plan (1) Retained products of conception after miscarriage: PLAN: History reviewed with patient since preop visit yesterday with no interval change. Patient and given opportunity to ask questions and questions answered to their satisfaction. Proceed with suction d&C as planned. (2) Abnormal uterine bleeding (AUB): PLAN: H/H normal, no anemia
[2020-07-28] MEDS: Lidocaine 1% (30 ml sdv) 30 ML Vial (11:49)
--- NOTE | 2020-07-28 12:00 | POC_PTH ---
PATIENT: NAN CALLAHAN LOC: [facility] – [place] U#:[id number] AGE/SX: 34/F ROOM: RE07/28/[address]: Dr. Margarita Delgado MD : 1985 BED: DIS: 07/28/2020 SPEC #: [id number] RECD: 07/28/20 15:34 STATUS: AMANDA REJaydon #: [id number] ERIN: 07/28/20 12:[address]: Margarita Yu DEPT: SURGICAL PATHOLOGY RECD BY: Chris rFazier ENTERED: 07/29/20 08:42 SP TYPE: PROD CONC OTHR DR: No Primary Care Phys Tissues: Product of conception, NOS Procedures: Surgery Specimen Level IV HEADER OPERATION: Suction dilation and curettage PRE-OP DIAGNOSIS: Incomplete spontaneous TISSUE SUBMITTED: Retained products of conception MICROSCOPIC DIAGNOSIS Retained products of conception, D & C: Consistent with fragments of retained immature placental tissue. See comment. SJ:jing 08/02/2020 COMMENT Placental tissue consists of hyalinized villi. Please make reference to previous specimen ([id number]) endometrium, curettage with diagnosis of ?chorionic villi, decidualized stroma and trophoblastic cells consistent with products of conception.? MICROSCOPIC DESCRIPTION Slides are reviewed. GROSS DESCRIPTION Received in fixative is one container labeled with the patient's name and designated retained products of conception. The specimen consists of multiple irregular fragments of taylor-pink soft tissue mixed with blood clot that in aggregate measure 5 x 5 x 2 cm. tissue is not identified. Personal Lines Agent tissue is submitted in two cassettes. / MAMI:jing 07/29/20 TC:5 CPT: 12135
[2020-07-28] MEDS: Methylergonovine 0.2 MG/ML Ampul IM (12:08)
--- NOTE | 2020-07-28 12:20 | PCM.OPRPT ---
Problems Associated Problem List Diagnoses (1) Abnormal uterine bleeding (AUB): (2) Retained products of conception after miscarriage: Report of Operation Date of Procedure: 07/28/20 Pre-Operative Diagnosis: 1. Retained products of conception 2. abnormal uterine bleeding Post-Operative Diagnosis: 1. Retained products of conception 2. abnormal uterine bleeding Surgery/Procedure Performed:: 1. Examination under anesthesia 2. Suction dilation and curettage Surgeon: Margarita Yu assembler latches and springs: None Type of Anesthesia: Local MAC Anesthesiologist: Cirilo Rascon Special Medications: Methergine 0.2 mg IM Specimen's removed: Products of conception Estimated Blood Loss (mL): 20 Fluids Replaced: 900 mL Description of Procedure: Indications: 34-year-old 4 para 3-0-1-3 presents for suction dilatation and curettage for retained products of conception with persistent vaginal bleeding.. She had a suction D&C on June 23, 2010 for incomplete spontaneous following an 11-week demise however had persistent vaginal bleeding. A pelvic ultrasound earlier this week demonstrated a thickened uterine lining suggestive of retained products. Patient was advised to proceed with repeat D&C. Procedure risks, benefits, indications, and alternatives were reviewed and patient desired to proceed. Procedure: Patient was brought to the operating room and sinus performed. She is placed in the dorsal supine position and induced under MAC. She was repositioned to dorsolithotomy and examination under anesthesia was performed. The perineum was prepped and straight catheterization of the bladder was performed. She was then draped in sterile fashion. And transabdominal ultrasound was performed demonstrating endometrial thickening as previously seen. The cervix was grasped the anterior cervical lip using a single-tooth tenaculum and a paracervical block was administered for a total of 20 cc of 1% lidocaine without epinephrine. The cervix was subsequently dilated and suction curettage performed with retrieval of products of conception. This was followed by sharp curettage. Ultrasound was again performed demonstrating extraction of most products. Suction curettage was again performed on repeat ultrasound suggested no retained products of conception with a thin endometrium. Patient was given IM Methergine for further hemostasis. The procedure was complete. The tenaculum is removed from the cervix. The patient placed into dorsal supine, awakened and transferred to the recovery room without complication. Sponge counts were correct x2. Complications None Admit VTE Documentation VTE Present on Admission: No VTE Mechan Device Prophylaxis: [facility] [place]'s VTE Pharm Prophylaxis ordered?: No
--- NOTE | 2020-07-28 12:31 | PCM.DC ---
Discharge Instructions Diet Discharge Diet: No restrictions Activity Discharge Activity: Return to Normal Activity and May Shower May resume sexual activity in: 4 weeks Dressing / Incision Call your doctor if you observe: Fever of 101 or Higher, Using more than one pad per hour, Shortness of breath, Chest pain, Calf discomfort and Uncontrolled pain Follow Up Care Please Follow Up With: Margarita Delgado MD When: 2 weeks Test Results: Test results from this visit will be discussed in further detail at your follow-up appointment, if applicable. Discharge Plan Admission Primary Reason for Your Visit: Dilation and curettage Attending Provider: Margarita uY Primary Care Provider: Care Physician,No Primary Discharge Orders/Prescriptions Prescriptions: New ibuprofen 800 mg tablet 800 mg PO Q8H PRN (Reason: pain) Qty: 30 RF: 0 Referrals / Follow Up: Care Physician,No Primary [Primary Care Provider] - Disposition Discharge Orders: Discharge Patient (Routine); Ordered 07/28/20 Ordered By: Dr. Margarita Delgado
--- NOTE | 2020-07-28 12:43 | PCM.DC ---
Discharge Instructions Diet Discharge Diet: No restrictions Activity Discharge Activity: Return to Normal Activity and May Shower May resume sexual activity in: 4 weeks Dressing / Incision Call your doctor if you observe: Fever of 101 or Higher, Using more than one pad per hour, Shortness of breath, Chest pain, Calf discomfort and Uncontrolled pain Follow Up Care Please Follow Up With: Margarita Delgado MD Test Results: Test results from this visit will be discussed in further detail at your follow-up appointment, if applicable. Discharge Plan Admission Primary Reason for Your Visit: Dilation and curettage Attending Provider: Margarita Yu Primary Care Provider: Care Physician,No Primary Discharge Orders/Prescriptions Prescriptions: New ibuprofen 800 mg tablet 800 mg PO Q8H PRN (Reason: pain) Qty: 30 RF: 0 doxycycline monohydrate 100 mg capsule 100 mg PO BID Qty: 14 RF: 0 Referrals / Follow Up: Care Physician,No Primary [Primary Care Provider] - Disposition Discharge Orders: Discharge Patient (Routine); Ordered 07/28/20 Ordered By: Dr. Margarita Delgado
== END 2020-07-28 13:21 ==
LOC: SDC 09:54 → AC 09:57
PROVIDERS: Referring Provider Obstetrics & Gynecology; Visit Provider Obstetrics & Gynecology
PROC: (CPT 59812; principal; 2020-07-28 11:45)
DX: O03.4 Incomplete spontaneous abortion without complication (principal); N93.9 Abnormal uterine and vaginal bleeding, unspecified
CPT/HCPCS: 01965; 59812; 85027; 85610; 85730; 86850; 86900; 86901; 87426; 88305; J7120; J2405

== ENCOUNTER → 2020-08-12 10:09 | Outpatient (CLI) | payer SELFPAY ==
[2020-07-28 10:29] VITALS: BMI 27.0
[2020-08-12 11:38] LABS: hCG Titer Quant., Serum < 1 mIU/mL (1-3)
== END ==
PROVIDERS: Visit Provider Obstetrics & Gynecology
DX: O03.89 Complete or unspecified spontaneous abortion with other complications (principal)
CPT/HCPCS: 36415; 84702

== ENCOUNTER → 2020-12-20 14:30 | Outpatient (CLI) | payer SELFPAY | PROVIDERS: Visit Provider Obstetrics & Gynecology | DX: N96 Recurrent pregnancy loss (principal) | CPT/HCPCS: 36415 ==

== ENCOUNTER 2021-01-17 10:38 | Day surgery (SDC) | payer SELFPAY ==
[2021-01-17] VITALS (7 sets, daily range): BP systolic 114–121; BP diastolic 77–90; PULSE 70–99; RESP 16; TEMP 36.4–36.9; O2SAT 100; BMI 27.4
[2021-01-17] MEDS: Lactated Ringers 1,000 ML 15 ML IV (11:41)
--- NOTE | 2021-01-17 11:41 | PCM.HP.OB ---
HPI - General HPI Narrative Surgical History and Physical Date: 01/11/2021 Name: NAN CALLAHAN Age: 35 Date of : 1985 Nan Callahan, a 35 year old female 3 0 2 0 3, presents for Suction dilation and curettage -- Nan presents following heavy bleeding after misoprostol treatment for anembryonic gestation. She had bleeding like a period following the initial dose which lightened and again last week heavier period like bleeding resumed. Denies overflow symptoms, anemia symptoms. She otherwise feels well with mild cramping intermittently. No fever, chills or other abdominal pain. She has 3 prior FT deliveries, then had an 11w SAB in 06/2020 following by suction D&C with repeat suction D&C in 07/2020 for retained POCs. 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 06/23/2020 suction D and C ; Mary Jane Patel DO - 2. 07/28/2020 Exam under anesthesia, Suction D and C ; Margarita Delgado MD - 3. 12/22/2918 R C/S ; Margarita Delgado MD - 4. 04/17/2014 primary c/s ; [facility] 5. 07/26/2016 ; Margarita Delgado MD - [facility] Medical History (Updated 01/16/21 @ 08:15 by Gretta Garcia) Non-smoker Wears contact lenses Home Medications pseudoephedrine HCl [Sudafed] 60 mg PO Q6H PRN 01/16/21 [History Last Taken Unknown] Allergy/AdvReac Type Severity Reaction Status Date / Time No Known Allergies Allergy Verified 01/17/21 11:17 no significant family history Surgical History Previous section S/P dilatation and curettage Social History Smoking Status: Never smoker History 5 Elective abortions Hx Para 3 Spontaneous abortions 1 Hx # Term Pregnancies Ectopic pregnancies Hx # Pregnancies Multiple births # of living children 3 ROS ROS Narrative Review of Systems: GENERAL - Denies fever, or chills SKIN - Denies skin changes EYES - Denies visual changes EARS - Denies difficulty hearing NOSE - Denies nasal congestion or bleeding MOUTH - Denies sore throat or difficulty swallowing NECK - Denies pain or swelling RESPIRATORY - Denies shortness of breath or wheezing CARDIOVASCULAR - Denies palpitations or chest pain GASTROINTESTINAL - Denies nausea, vomiting, diarrhea, constipation GENITOURINARY - spotting and now increased bleeding with clots MUSCULOSKELETAL - Denies joint or muscle pain NEUROLOGICAL - Denies localized numbness or weakness PSYCHIATRIC - anxious with no sx ENDOCRINE - Denies heat or cold intolerance, weight loss or gain HEMATO-IMMUNOLOGIC - Denies excesive bleeding with cuts Vital Signs Vital Signs Vital Signs: 01/17/21 11:19 01/17/21 11:22 Temperature 98.4 F Temperature Source Temporal Pulse Rate 99 Respiratory Rate 16 Respiratory Pattern Normal Blood Pressure 121/90 H Blood Pressure Mean 100 Blood Pressure Source Monitor Blood Pressure Position Semi-Fowlers Blood Pressure Location Left Arm Pulse Ox 100 Oxygen Delivery Method Room Air Weight Weight: 74.8 kg Body Mass Index (BMI) 27.4 Physical Exam Narrative BP- 110/76 Sitting, Right arm, regular cuff Weight- 167.66141 lbs Height- 65 inch BMI:27.536331898489376 CONSTITUTIONAL - NAD, well nourished, and well developed SKIN - No rash, lesions, or ulcers HEENT - normocephalic, atraumatic, sclerae anicteric LUNGS - normal respiratory rate and rhythm NEUROLOGICAL - normal gait, normal balance, normal motor PSYCHIATRIC - A and O to time, place, person, mood and affect External Genitial Vagina - non-tender without lesions Urethra/Urethral Meatus - non-tender Bladder - non-tender Vagina - vaginal yepez are pink and moist without loss of rugae and no evidence of atropy Cervix - without cervical motion tenderness and has normal size and features without evident lesions Uterus - 5-6 cm in size, mobile and nontende Labs Labs Labs: Blood Type A POSITIVE Antibody Screen NEGATIVE Hct 39.2 % (37-47) Hgb 13.0 g/dL (12.0-15.0) Syphilis Total Ab Non-reactive Rubella IgG Antibody Reactive (Nonreactive) Hep Bs Antigen Non-Reactive (Nonreactive) Neisseria gonorrhoeae DNA (ARMANI) Negative (Negative) HIV 1&2 Antibody Non-Reactive (Nonreactive) C.trachomatis DNA (PCR) Negative (Negative) Glucose 1 Hr 50 gm 91 mg/dL (70-140) Group B Strep DNA Negative (Negative) Rhogam given: No Miscellaneous Test Assessment & Plan (1) Retained products of conception after miscarriage: PLAN: Incomplete Spontaneous Without Complication US 01/11/21 shows retained gestational sac following medical management Plan for suction d&C (2) Abnormal uterine bleeding (AUB):
[2021-01-17 12:00] LABS: Hematocrit 36.2 % (37-47); Mean Corp Hgb Conc 33.1 g/dL (32-36); Mean Corpuscular Hgb 30.1 pg (27.0-32.0); Mean Corpuscular Volume 90.7 fL (81-99); Mean Platelet Vol. 10.7 fl (6.2-12.0); Platelet Count 215 K/mm3 (150-450); RBC Distribution Width SD 39.9 fl (35.1-43.9); Red Blood Count 3.99 M/mm3 (4.2-5.4); White Blood Count 5.8 K/mm3 (4.4-11.0)
--- NOTE | 2021-01-17 12:00 | POC_PTH ---
PATIENT: NAN CALLAHAN LOC: [facility] [place][id number] AGE/SX: 35/F ROOM: RE01/17/[address]: Dr. Margarita Delgado MD : 1985 BED: DIS: 01/17/2021 SPEC #: [id number] RECD: 01/17/21 14:09 STATUS: AMANDA REJaydon #: [id number] ERIN: 01/17/21 12:[address]: Margarita Yu DEPT: SURGICAL PATHOLOGY RECD BY: Nedra Tolbert ENTERED: 01/18/21 12:47 SP TYPE: PROD CONC OTHR DR: No Primary Care Phys Tissues: Product of conception, NOS Procedures: Surgery Specimen Level IV HEADER OPERATION: Suction dilation and curettage PRE-OP DIAGNOSIS: Retained products of conception after miscarriage TISSUE SUBMITTED: Products of conception MICROSCOPIC DIAGNOSIS Endometrium, curettage: Chorionic villi, decidualized stroma and trophoblastic cells consistent with products of conception. AM:jing 01/19/2021 MICROSCOPIC DESCRIPTION Slides are reviewed. GROSS DESCRIPTION Received in fixative is one container labeled with the patient's name and designated products of conception. The specimen consists of multiple irregular fragments of light tyalor soft tissue that in aggregate measure 4.5 x 4 x 0.3 cm. parts are not grossly recognized. The specimen is totally submitted in three cassettes. / AM:jing 01/18/21 TC:5 CPT: 90752
[2021-01-17] MEDS: Lubricating Jelly 60 GM Tube 30 GM (12:39)
[2021-01-17] MEDS: Lidocaine 1% (30 ml sdv) 30 ML Vial (12:40)
--- NOTE | 2021-01-17 13:02 | PCM.OPRPT ---
Problems Associated Problem List Diagnoses (1) Retained products of conception after miscarriage: (2) Abnormal uterine bleeding (AUB): Report of Operation Date of Procedure: 01/17/21 Pre-Operative Diagnosis: 1. Incomplate miscarriage 2. Retained products of conception 3. Abnormal bleeding Post-Operative Diagnosis: 1. Incomplate miscarriage 2. Retained products of conception 3. Abnormal bleeding Surgery/Procedure Performed:: Suction dilation and curettage Surgeon: Margarita Yu Type of Anesthesia: Local MAC Anesthesiologist: Bear Gray Specimen's removed: products of conception Estimated Blood Loss (mL): 10 Description of Procedure: 3-0-2-3 [id number] 5 para for suction dilation and curettage following incomplete spontaneous despite medical management. and alternatives were reviewed and patient Procedural risks, benefits, indications: agreed to proceed. Procedure: Patient was brought to the operating room and signed in was performed. She is placed in the dorsal supine position and induced under MAC, an examination under anesthesia was performed. The perineum was prepped and draped in sterile fashion with straight cath of the bladder performed. Speculum was placed vaginally and the cervix was grasped the anterior cervical lip using a single-tooth tenaculum. A paracervical block was placed using a total of 20 cc of 1% lidocaine. The cervix was subsequently dilated and suction curettage was performed using the 8 mm curved curette. This was followed by sharp curettage, then suction curettage until there is no further retrieval of products of conception. The procedure was complete. tenaculum was removed from the cervix and the tenaculum site was hemostatic. The speculum was removed. The patient was repositioned into dorsal supine, awakened and transferred to the recovery room without complication. Sponge counts were correct x2. Complications none Admit VTE Documentation VTE Present on Admission: No VTE Mechan Device Prophylaxis: SCD's VTE Pharm Prophylaxis ordered?: No
--- NOTE | 2021-01-17 14:31 | PCM.DC ---
Discharge Instructions Diet Discharge Diet: No restrictions Activity Discharge Activity: Return to Normal Activity May resume sexual activity in: 4 weeks Dressing / Incision Call your doctor if you observe: Fever of 101 or Higher, Using more than 1 pad per hour, Shortness of breath, Chest pain, Calf discomfort and Uncontrolled pain Follow Up Care Please Follow Up With: Margarita Delgado MD When: 2-4 weeks Test Results: Test results from this visit will be discussed in further detail at your follow-up appointment, if applicable. Discharge Plan Admission Primary Reason for Your Visit: D & C Attending Provider: Margarita Yu Primary Care Provider: Care Physician,No Primary Discharge Orders/Prescriptions Prescriptions: New doxycycline monohydrate 100 mg capsule 100 mg PO BID Qty: 13 RF: 0 ibuprofen 800 mg tablet 800 mg PO TID PRN (Reason: pain) Qty: 30 RF: 0 Continued pseudoephedrine HCl 60 mg Tablet 60 mg PO Q6H PRN (Reason: Nasal Congestion) RF: 0 Referrals / Follow Up: Care Physician,No Primary [Primary Care Provider] - Disposition Disposition (needs filled in before D/C Order can be placed): Home, Self Care
== END 2021-01-17 14:39 | disposition home or self-care (01) ==
LOC: SDC 10:43 → AC 10:43
PROVIDERS: Visit Provider Obstetrics & Gynecology
PROC: (CPT 59812; principal; 2021-01-17 11:45)
DX: O03.4 Incomplete spontaneous abortion without complication (principal)
CPT/HCPCS: 01965; 59812; 85027; 86850; 86900; 86901; 87426; 88305; J7120; J2405

== ENCOUNTER 2021-03-15 06:38 | Day surgery (SDC) | payer SELFPAY ==
[2021-03-15] VITALS (9 sets, daily range): BP systolic 111–124; BP diastolic 68–80; PULSE 61–81; RESP 16; TEMP 36.6–37.1; O2SAT 98–100; BMI 27.8
[2021-03-15] MEDS: Doxycycline 100 MG CAPSULE PO (07:00)
--- NOTE | 2021-03-15 07:12 | HP.PCM.OB_ITS ---
HPI - General HPI Narrative NAN CALLAHAN, is a 35 F 5 para 3023 presenting for schedule suction dilation and curettage for retained products of conception. She had a suction D&C on 01/17/21 for missed AB, however, continued to have abnormal bleeding off an on. A pelvic US 03/08/21 showed a thickened, heterogenous endometrium co ncerning for retained products of conception. PFSH PFSH Medical History Non-smoker Wears contact lenses Home Medications ibuprofen 800 mg PO Q6H PRN #30 tab 03/15/21 [Rx Last Taken Unknown] Allergy/AdvReac Type Severity Reaction Status Date / Time No Known Allergies Allergy Verified 03/10/21 10:49 Family History (Updated 03/15/21 @ 07:[address] Margarita Delgado MD) Father Pulmonary embolism Surgical History (Updated 03/10/21 @ 10:52 by Gretta Garcia) Previous section S/P dilatation and curettage Social History Smoking Status: Never smoker History 5 Elective abortions Hx Para 3 Spontaneous abortions 2 Hx # Term Pregnancies Ectopic pregnancies Hx # Pregnancies Multiple births # of living children 3 Vital Signs Vital Signs Vital Signs: BP 124/73 \p 76 \r 16 \ T 98.3\ O2 sat 98% Physical Exam Const alert, oriented x3 and no apparent distress HEENT normocephalic Resp normal respiratory effort, normal air movement and clear to auscultation bilaterally Cardio regular rate and regular rhythm GI normal to inspection, nondistended, normoactive bowel sounds, soft to palpation, non-tender and non-distended Labs Labs Labs: Blood Type A POSITIVE Antibody Screen NEGATIVE Hct 36.2 % (37-47) L Hgb 11.9 g/dL (12.0-15.0) L Syphilis Total Ab Non-reactive Rubella IgG Antibody Reactive (Nonreactive) Hep Bs Antigen Non-Reactive (Nonreactive) Neisseria gonorrhoeae DNA (ARMANI) Negative (Negative) HIV 1&2 Antibody Non-Reactive (Nonreactive) C.trachomatis DNA (PCR) Negative (Negative) Glucose 1 Hr 50 gm 91 mg/dL (70-140) Group B Strep DNA Negative (Negative) Rhogam given: No Miscellaneous Test Assessment & Plan (1) Retained products of conception after miscarriage: PLAN: Proceed with suction D&C as planned (2) Abnormal uterine bleeding (AUB):
[2021-03-15 07:24] LABS: Hematocrit 36.2 % (37-47); Hemoglobin 11.9 g/dL (12.0-15.0); Mean Corp Hgb Conc 32.9 g/dL (32-36); Mean Corpuscular Hgb 29.3 pg (27.0-32.0); Mean Corpuscular Volume 89.2 fL (81-99); Mean Platelet Vol. 10.9 fl (6.2-12.0); Platelet Count 197 K/mm3 (150-450); RBC Distribution Width SD 38.5 fl (35.1-43.9); Red Blood Count 4.06 M/mm3 (4.2-5.4); White Blood Count 4.3 K/mm3 (4.4-11.0)
[2021-03-15] MEDS: Lactated Ringers 1,000 ML 125 ML IV (07:25)
--- NOTE | 2021-03-15 08:00 | POC_PTH ---
PATIENT: NAN CALLAHAN LOC: [facility] [place] U#:[id number] AGE/SX: 35/F ROOM: RE03/15/[address]: Dr. Margarita Delgado MD : 1985 BED: DIS: 03/15/2021 SPEC #: [id number] RECD: 03/15/21 09:37 STATUS: AMANDA JOAQUÍN #: [id number] ERIN: 03/15/21 08:[address]: Margarita Yu DEPT: SURGICAL PATHOLOGY RECD BY: Chris Frazier ENTERED: 03/15/21 11:05 SP TYPE: PROD CONC OTHR DR: No Primary Care Phys Tissues: Product of conception, NOS Procedures: Surgery Specimen Level IV HEADER OPERATION: Dilation and curettage, suction PRE-OP DIAGNOSIS: Retained products of conception after miscarriage TISSUE SUBMITTED: Products of conception MICROSCOPIC DIAGNOSIS Products of conception: Hyalinized immature chorionic villi, consistent with retained products of conception. Hyalinized fibrous nodule, consistent with placental site nodule. Fragments of secretory endometrium, myometrium and squamous epithelium. MAMI:jing 03/16/2021 MICROSCOPIC DESCRIPTION Slides are reviewed. GROSS DESCRIPTION Received in fixative is one container labeled with the patient's name and designated products of conception. The specimen consists of multiple irregular fragments of pink hemorrhagic soft tissue that in aggregate measure 5 x 3 x 0.2 cm. No tissue is identified. The entire specimen is submitted in two cassettes. / MAMI:jing 03/15/2021 TC:5 CPT: 20590
[2021-03-15] MEDS: Lidocaine 1% (20 ml mdv) 20 ML Vial (08:37)
[2021-03-15] MEDS: Lubricating Jelly 60 GM Tube 30 GM (08:37)
--- NOTE | 2021-03-15 09:04 | PCM.OPRPT ---
Problems Associated Problem List Diagnoses (1) Retained products of conception after miscarriage: Report of Operation Date of Procedure: 03/15/21 Pre-Operative Diagnosis: Retained products of conception Post-Operative Diagnosis: Retained products of conception Surgery/Procedure Performed:: Suction dilation and curettage Surgeon: Margarita Yu Type of Anesthesia: Local MAC Anesthesiologist: Jamar Randolph Specimen's removed: Products of conception Estimated Blood Loss (mL): 15 Fluids Replaced: 800 ML Description of Procedure: Indications: 35-year-old 5 para 3-0-2-3 presents for scheduled suction dilation and curettage for retained products of conception. She previously had undergone suction D&C for missed following failed medical management. She continued to have persistent abnormal bleeding and pelvic ultrasound last week demonstrated a thickened heterogenous endometrium concerning for retained products. Procedural risks, benefits, indications were reviewed and patient opted to proceed. Procedure. Patient was brought to the operating room and signed in was performed. She is placed in dorsal supine position and induced under MAC. She was repositioned to dorsolithotomy and examination under anesthesia was performed. The perineum was prepped and draped in sterile fashion. A bivalve speculum placed vaginally and the cervix grasped the anterior cervical lip using a single-tooth tenaculum. Paracervical block was placed for total of 20 cc of 1% lidocaine. The cervix was but subsequently dilated. The speculum was removed and replaced with a weighted speculum. Suction and sharp curettage was performed with ultrasound guidance. Ultrasound was performed demonstrating a thin endometrium. The procedure was complete. The patient was awakened will be transferred to the recovery room. Sponge counts were correct x2. Complications None Admit VTE Documentation VTE Present on Admission: No VTE Mechan Device Prophylaxis: [facility] VTE Pharm Prophylaxis ordered?: No
--- NOTE | 2021-03-15 09:08 | PCM.DC ---
Discharge Instructions Diet Discharge Diet: No restrictions Activity May resume sexual activity in: 4 weeks Dressing / Incision Call your doctor if you observe: Fever of 101 or Higher, Using more than 1 pad per hour, Shortness of breath, Chest pain, Calf discomfort and Uncontrolled pain Follow Up Care Please Follow Up With: Margarita Delgado MD When: 2 weeks telehealth Test Results: Test results from this visit will be discussed in further detail at your follow-up appointment, if applicable. Discharge Plan Admission Primary Reason for Your Visit: Dilation and curettage Attending Provider: Margarita Yu Primary Care Provider: Care Physician,No Primary Instructions Patient Instructions: Dilation and Curettage Discharge Orders/Prescriptions Prescriptions: New ibuprofen 800 mg tablet 800 mg PO Q6H PRN (Reason: pain) Qty: 30 RF: 0 Referrals / Follow Up: Care Physician,No Primary [Primary Care Provider] - Disposition Disposition (needs filled in before D/C Order can be placed): Home, Self Care
== END 2021-03-15 23:59 | disposition home or self-care (01) ==
LOC: SDC 06:38 → AC 06:39
PROVIDERS: Referring Provider Obstetrics & Gynecology; Visit Provider Obstetrics & Gynecology
PROC: (CPT 59812; principal; 2021-03-15 07:45)
DX: O03.4 Incomplete spontaneous abortion without complication (principal); Z20.822 Contact with and (suspected) exposure to COVID-19
CPT/HCPCS: 59812; 01965; 85027; 86850; 86900; 86901; 87426; 88305; J7120; J2405

== ENCOUNTER → 2022-04-06 | Outpatient (CLI) | payer SELFPAY ==
[2022-04-09 20:07] LABS: Chlamydia By Nucleic Acid AMP Negative (Negative)
[2022-04-09 20:38] LABS: Gonococcus By Nucleic Acid AMP Negative (Negative)
[2022-04-13 18:45] LABS: HPV APTIMA, High Risk Negative (Negative)
== END | disposition home or self-care (01) ==
PROVIDERS: Visit Provider Obstetrics & Gynecology
DX: Z34.90 Encounter for supervision of normal pregnancy, unspecified, unspecified trimester (principal)
CPT/HCPCS: 87086; 87088; 87491; 87591; 87624; 88175; G0145

== ENCOUNTER → 2022-04-20 | Outpatient (CLI) | payer SELFPAY ==
[2022-04-20 10:21] LABS: Absolute Lymphocyte Count 1.68 X10^3/uL (0.83-4.51); Absolute Neutrophil Count 3.7 X10^3/uL (2.0-7.7); Basophil# 0.02 X10^3/uL; Basophil% 0.3 % (0-1); Eosinophil# 0.07 X10^3/uL; Eosinophils% 1.2 % (0-5); Hematocrit 38.7 % (37-47); Hemoglobin 12.9 g/dL (12.0-15.0); Lymphocyte # 1.68 X10^3/ul (0.83-4.51); Lymphocyte % 28.9 % (19-41); Mean Corp Hgb Conc 33.3 g/dL (32-36); Mean Corpuscular Hgb 30.3 pg (27.0-32.0); Mean Corpuscular Volume 90.8 fL (81-99); Mean Platelet Vol. 10.3 fl (6.2-12.0); Monocyte# 0.35 X10^3/uL; NRBC Flagged by Analyzer 0 % (0-5); Neutrophil # 3.68 X10^3/uL (2.7-7.7); Neutrophil % 63.3 % (47-70); Platelet Count 227 K/mm3 (150-450); RBC Distribution Width CV 11.9 % (11.6-14.6); RBC Distribution Width SD 39.7 fl (35.1-43.9); Red Blood Count 4.26 M/mm3 (4.2-5.4); White Blood Count 5.8 K/mm3 (4.4-11.0)
[2022-04-20 11:36] LABS: HIV - WCH Non-Reactive (Nonreactive); Hepatitis B Surface Antigen Non-Reactive (Nonreactive); Hepatitis C Antibody Non-Reactive (Nonreactive); Rubella IgG Reactive (Nonreactive); Syphilis Antibodies Non-reactive
== END | disposition home or self-care (01) ==
PROVIDERS: Referring Provider Obstetrics & Gynecology; Visit Provider Obstetrics & Gynecology
DX: Z34.90 Encounter for supervision of normal pregnancy, unspecified, unspecified trimester (principal)
CPT/HCPCS: 36415; 85025; 86703; 86762; 86780; 86803; 86850; 86900; 86901; 87340

== ENCOUNTER → 2022-06-21 | Outpatient (CLI) | payer SELFPAY ==
--- NOTE | 2022-06-21 12:14 | US_ITS ---
INDICATION: anatomy EXAMINATION: Ultrasound US OB Greater Than 14 Weeks TECHNIQUE: Transabdominal pelvic ultrasound was performed. COMPARISON: None. LMP: 02/06/2022 Beta-hCG: Unknown. Provided EGA: 19 weeks 2 days FINDINGS: INTRAUTERINE GESTATION(s): Single. ESTIMATED GESTATIONAL AGE: 20 weeks 0 days ESTIMATED DUE DATE (SONAM): 11/08/2022 HEART MOTION is 145 bpm. AMNIOTIC FLUID: Qualitatively normal. ESTIMATED WEIGHT: 348 g or 0 lbs. 12 oz. Percentile 94th%. BIOPHYSICAL PROFILE (BPP): Not assessed. PRESENTATION: Variable PLACENTA: Fundal. There is no placenta previa or abruption. CERVIX: The cervix is closed. Cervical length 3.9 cm. Demonstrated anatomy remarkable for shortening mandible on sagittal views and 3-D MPR images. No other anomalies demonstrated. US/OB Anatomy Scan IMPRESSION: Single live intrauterine of 20 weeks 0 days EGA. Probable micrognathia. Recommend repeat evaluation in the third trimester. Electronically Signed: Hector Mcnulty MD at 0:58 EDT ,
== END | disposition home or self-care (01) ==
PROVIDERS: Referring Provider Obstetrics & Gynecology; Visit Provider Obstetrics & Gynecology
DX: O09.90 Supervision of high risk pregnancy, unspecified, unspecified trimester (principal)
CPT/HCPCS: 76805; 76817

== ENCOUNTER → 2022-08-10 | Outpatient (CLI) | payer SELFPAY ==
[2022-08-10 10:20] LABS: Absolute Lymphocyte Count 1.61 X10^3/uL (0.83-4.51); Absolute Neutrophil Count 5.4 X10^3/uL (2.0-7.7); Basophil# 0.01 X10^3/uL; Basophil% 0.1 % (0-1); Eosinophil# 0.11 X10^3/uL; Eosinophils% 1.4 % (0-5); Hematocrit 32.9 % (37-47); Hemoglobin 10.6 g/dL (12.0-15.0); Lymphocyte # 1.61 X10^3/ul (0.83-4.51); Lymphocyte % 20.9 % (19-41); Mean Corp Hgb Conc 32.2 g/dL (32-36); Mean Corpuscular Hgb 30.1 pg (27.0-32.0); Mean Corpuscular Volume 93.5 fL (81-99); Mean Platelet Vol. 10.6 fl (6.2-12.0); Monocyte# 0.51 X10^3/uL; Monocyte% 6.6 % (0-10); NRBC Flagged by Analyzer 0 % (0-5); Neutrophil % 70.2 % (47-70); Platelet Count 219 K/mm3 (150-450); RBC Distribution Width CV 12.2 % (11.6-14.6); RBC Distribution Width SD 41.6 fl (35.1-43.9); Red Blood Count 3.52 M/mm3 (4.2-5.4); White Blood Count 7.7 K/mm3 (4.4-11.0)
[2022-08-10 10:38] LABS: Glucose Challenge Gest 1H 50g 123 mg/dL (70-140)
[2022-08-10 11:10] LABS: HIV - WCH Non-Reactive (Nonreactive); Syphilis Antibodies Non-reactive
== END | disposition home or self-care (01) ==
PROVIDERS: Referring Provider Obstetrics & Gynecology; Visit Provider Obstetrics & Gynecology
DX: O09.90 Supervision of high risk pregnancy, unspecified, unspecified trimester (principal); Z3A.00 Weeks of gestation of pregnancy not specified
CPT/HCPCS: 36415; 82950; 85025; 86703; 86780

== ENCOUNTER → 2022-09-21 | Outpatient (CLI) | payer SELFPAY ==
[2022-09-21 11:27] LABS: Absolute Lymphocyte Count 1.52 X10^3/uL (0.83-4.51); Absolute Neutrophil Count 4.7 X10^3/uL (2.0-7.7); Basophil# 0.02 X10^3/uL; Basophil% 0.3 % (0-1); Eosinophil# 0.09 X10^3/uL; Eosinophils% 1.3 % (0-5); Hematocrit 31.8 % (37-47); Hemoglobin 10.4 g/dL (12.0-15.0); Lymphocyte # 1.52 X10^3/ul (0.83-4.51); Lymphocyte % 21.7 % (19-41); Mean Corp Hgb Conc 32.7 g/dL (32-36); Mean Corpuscular Hgb 30.6 pg (27.0-32.0); Mean Corpuscular Volume 93.5 fL (81-99); Mean Platelet Vol. 10.8 fl (6.2-12.0); Monocyte# 0.62 X10^3/uL; Monocyte% 8.8 % (0-10); NRBC Flagged by Analyzer 0 % (0-5); Neutrophil # 4.73 X10^3/uL (2.7-7.7); Neutrophil % 67.3 % (47-70); Platelet Count 177 K/mm3 (150-450); RBC Distribution Width CV 13.2 % (11.6-14.6); RBC Distribution Width SD 44.8 fl (35.1-43.9)
== END | disposition home or self-care (01) ==
PROVIDERS: Referring Provider Obstetrics & Gynecology; Visit Provider Obstetrics & Gynecology
DX: O99.013 Anemia complicating pregnancy, third trimester (principal); Z3A.00 Weeks of gestation of pregnancy not specified
CPT/HCPCS: 36415; 85025

== ENCOUNTER → 2022-10-18 | Outpatient (CLI) | payer SELFPAY | END | disposition home or self-care (01) | LOC: LABSPEC 15:53 | PROVIDERS: Referring Provider Obstetrics & Gynecology; Visit Provider Obstetrics & Gynecology | DX: O09.90 Supervision of high risk pregnancy, unspecified, unspecified trimester (principal); Z3A.00 Weeks of gestation of pregnancy not specified | CPT/HCPCS: 87077; 87081 ==

== ENCOUNTER → 2022-10-26 | Outpatient (CLI) | payer SELFPAY ==
[2022-10-26 12:58] LABS: Hemoglobin A1c 5.2 % (3.8-5.6)
== END | disposition home or self-care (01) ==
PROVIDERS: Referring Provider Obstetrics & Gynecology; Visit Provider Obstetrics & Gynecology
DX: O40.9XX0 Polyhydramnios, unspecified trimester, not applicable or unspecified (principal); Z3A.00 Weeks of gestation of pregnancy not specified
CPT/HCPCS: 36415; 83036

== ENCOUNTER 2022-10-31 10:10 | Inpatient (IN) | payer SELFPAY ==
[2022-10-31] VITALS (16 sets, daily range): BP systolic 102–124; BP diastolic 52–81; PULSE 61–96; RESP 14–18; TEMP 36.6–37.1; O2SAT 96–99; BMI 33.3
--- NOTE | 2022-10-31 | FALS_PTH ---
PATIENT: NAN CALLAHAN LOC: [facility] U#:[id number] AGE/SX: 37/F ROOM: WP010 RE10/31/[address]: Dr. Paige Delaney DO : 1985 BED: 1 DIS: 11/02/2022 SPEC #: [id number] RECD: 10/31/22 14:32 STATUS: AMANDA JOAQUÍN #: [id number] ERIN: 10/31/22 00:[address]: Paige Delaney DEPT: SURGICAL PATHOLOGY RECD BY: Antoine Cleary ENTERED: 11/01/22 09:29 SP TYPE: FALL TUBES OTHR DR: No Primary Care Phys Tissues: Fallopian tube Procedures: Surgery Specimen Level II HEADER OPERATION: Tubal ligation PRE-OP DIAGNOSIS: Sterilization TISSUE SUBMITTED: Fallopian tubes MICROSCOPIC DIAGNOSIS Right fallopian tube, salpingectomy: Complete cross-section with no pathologic change. Left fallopian tube, salpingectomy: Complete cross-section with no pathologic change. AM:jing 11/02/2022 MICROSCOPIC DESCRIPTION Slides are reviewed. GROSS DESCRIPTION Received in fixative is one container labeled with the patient's name and designated bilateral fallopian tubes, suture on right. The specimen consists of bilateral fallopian tubes including fimbrial ends. The right fallopian tube measures 8.5 cm in length and 0.7 cm in diameter and the left fallopian tube measures 7.0 cm in length and 0.8 cm in diameter. Sections reveal unremarkable cut surfaces. Sports Physiotherapist sections are submitted in two cassettes as follows: 1 - right fallopian tube, 2 - left fallopian tube. / MAMI:jing 11/01/2022 TC:4 CPT: 49637 x2
[2022-10-31] MEDS: Lactated Ringers 1,000 ML 999 ML IV (10:35)
[2022-10-31 10:51] LABS: Absolute Neutrophil Count 4.7 X10^3/uL (2.0-7.7); Basophil# 0.02 X10^3/uL; Basophil% 0.3 % (0-1); Eosinophil# 0.05 X10^3/uL; Eosinophils% 0.8 % (0-5); Hematocrit 34.2 % (37-47); Hemoglobin 11.3 g/dL (12.0-15.0); Lymphocyte % 21.3 % (19-41); Mean Corpuscular Hgb 30.9 pg (27.0-32.0); Mean Corpuscular Volume 93.4 fL (81-99); Mean Platelet Vol. 11.5 fl (6.2-12.0); Monocyte% 6.1 % (0-10); NRBC Flagged by Analyzer 0 % (0-5); Neutrophil # 4.68 X10^3/uL (2.7-7.7); Platelet Count 177 K/mm3 (150-450); RBC Distribution Width CV 13.2 % (11.6-14.6); RBC Distribution Width SD 45.1 fl (35.1-43.9); Red Blood Count 3.66 M/mm3 (4.2-5.4); White Blood Count 6.6 K/mm3 (4.4-11.0)
[2022-10-31] MEDS: Acetaminophen 500 MG Tablet 1000 MG PO ×2 (11:19→17:38)
[2022-10-31] MEDS: Lactated Ringers 1,000 ML 150 ML IV (11:25)
[2022-10-31 11:35] LABS: Syphilis Antibodies Non-reactive
[2022-10-31] MEDS: Sodium Citrate/Citric Acid 30 ML UDC PO (11:58)
[2022-10-31] MEDS: Cefazolin 2 GM in 0.9% Normal Saline 100 ML IV (12:10)
--- NOTE | 2022-10-31 12:15 | HP.PCM.OB_ITS ---
HPI - General General Date of Admission: 10/31/22 HPI Narrative NAN CALLAHAN, is a 37 y/o @38 weeks 1 day who presents Arash&D for a repeat section and bilateral salpingectomy due to polyhydramnios >30 cm and prior sections. [facility] has recommended delivery at 38 weeks due to level of poly. Maternal Data Information SONAM Calculator Estimated Delivery Date Method Current WG Current Estimate 11/13/22 LMP (Certain) 38w 1d PFSH PFSH Medical History (Updated 10/31/22 @ 11:15 by Angie Dominguez) Abnormal uterine bleeding (AUB) Circumvallate placenta Hx of abnormal cervical Pap smear Non-smoker Polyhydramnios Retained products of conception after miscarriage Wears contact lenses Home Medications multivitamin no.47-iron fum 27 mg-folate no.1 1 mg-dha 300 mg capsule (PNV-DHA) 1 cap PO DAILY 03/27/22 [History Last Taken 10/30/22] ferrous sulfate 27 mg iron tablet 27 mg PO DAILY 10/31/22 [History Last Taken 10/30/22] Allergy/AdvReac Type Severity Reaction Status Date / Time No Known Allergies Allergy Verified 10/26/22 10:05 Family History Father Pulmonary embolism Surgical History (Updated 10/31/22 @ 11:15 by Angie Dominguez) Previous section S/P dilatation and curettage Social History adopted: No household members: spouse and children housing: house number of children: 3 current occupational status: employed current occupation: [employer] @ [employer] current occupational exposures/hazards: No pets and animals: No history of recent travel: No sexually active: Yes Smoking Status: Never smoker alcohol intake: never substance use type: does not use well-balanced diet: daily or most days caffeine: No eating out: rarely or never during the past year weight has: remained stable what type of physical activity do you participate in: none jelani/roman catholic: Jehovah'[employer] Witness seatbelt use: always do you feel safe at home: Yes additional social history: Anthony Joyner History 6 Elective abortions Hx Para 3 Spontaneous abortions 2 Hx # Term Pregnancies Ectopic pregnancies Hx # Pregnancies Multiple births # of living children 3 Past Pregnancies Del. Date Name GA/Weeks Outcome Route Bth Weight Gen Labor Lgth Anesthesia Del Locatn Provider FOB 04/17/14 Balta 40 live - full term 8#3oz Female 19.5 hrs [address] [facility] Ida Kruse 07/26/16 Tanya 41 live - full term 9#8oz Male 10 Hrs e pidural [facility] Dr. Sana Kruse 12/22/18 Alexandru 39 live - full term 7#5oz Female spinal [facility] Edenilson Kruse 06/22/20 miscarriage 16 weeks 12/11/20 miscarriage 12 weeks Delivery Date: 04/17/14 Last Updated by: Lizzie Scott Failure to progress Delivery Date: 07/26/16 Last Updated by: Lizzie Scott decels during attempt Delivery Date: 06/22/20 Last Updated by: Lizzie Scott growth stopped at 12 weeks Delivery Date: 12/11/20 Last Updated by: Lizzie Scott empty gestational sac. Growth of sac stopped at 8 weeks. Visit Details Expected Delivery Route/Plan RLTCS Plans Covid status: discussed Flu vaccine: discussed Tdap vaccine: declined Rhogam: na LARC form signed:declined movement and labor precautions reviewed. Problem list reviewed and updated with the most current plan of care details and appropriate orders placed. Relevant counseling for the gestational age provided. Continue routine care and follow up unless otherwise noted in visit notes/problem list details OB Flowsheet Initial Weight: Not Recorded Date -?-?-?-?-?-?-?-?-?-?-?-?- EGA Weight BP Urine Prot -?-?-?-?-?-?-?-?-?-?-?-?- Glucose FHR FuHt Pres Dilation -?-?-?-?-?-?-?-?-?-?-?-?- Effaced St Visit Note 04/06/22 -?-?-?-?-?-?-?-?-?-?-?-?- 8w 3d 174 lb 136/88 -?-?-?-?-?-?-?-?-?-?-?-?- 160 -?-?-?-?-?-?-?-?-?-?-?-?- SM_ CRL cons wit h LMP 04/20/22 -?-?-?-?-?-?-?-?-?-?-?-?- 10w 3d 175 lb 136/81 Negative -?-?-?-?-?-?-?-?-?-?-?-?- Negative 150 -?-?-?-?-?-?-?-?-?-?-?-?- SM- no vb crampi ng doing well 05/01/22 -?-?-?-?-?-?-?-?-?-?-?-?- 12w 0d 175 lb 6 oz 139/90 Nega tive -?-?-?-?-?-?-?-?-?-?-?-?- Negative 160 -?-?-?-?-?-?-?-?-?-?-?-?- SM- no vb crampi ng, anxious today 05/17/22 -?-?-?-?-?-?-?-?-?-?-?-?- 14w 2d 175 lb 6 oz 137/84 Nega tive -?-?-?-?-?-?-?-?-?-?-?-?- Negative 156 -?-?-?-?-?-?-?-?-?-?-?-?- JV- no lof, vagi nal bleeding, or cramping. no complaints today. normal labs. declines nipt 06/12/22 -?-?-?-?-?-?-?-?-?-?-?-?- 18w 0d 176 lb 6 oz 126/84 Nega tive -?-?-?-?-?-?-?-?-?-?-?-?- Negative 160 -?-?-?-?-?-?-?-?-?-?-?-?- MH-No Vb, crampi ng. Feeling flutters. US next week 07/12/22 -?-?-?-?-?-?-?-?-?-?-?-?- 22w 2d 178 lb 2 oz 133/74 Nega tive -?-?-?-?-?-?-?-?-?-?-?-?- Negative 145 -?-?-?-?-?-?-?-?-?-?-?-?- SM- no vb lof go od fm no regular ctx 08/10/22 -?-?-?-?-?-?-?-?-?-?-?-?- 26w 3d 185 lb 142/90 Negative -?-?-?-?-?-?-?-?-?-?-?-?- Negative 140 27 -?-?-?-?-?-?-?-?-?-?-?-?- SM- no vb lof go od fm no regular ctx 09/07/22 -?-?-?-?-?-?-?-?-?-?-?-?- 30w 3d 191 lb 2 oz 133/88 Nega tive -?-?-?-?-?-?-?-?-?-?-?-?- Negative 140 30 -?-?-?-?-?-?-?-?-?-?-?-?- SM- no vb lof go od fm no regular ctx 09/21/22 -?-?-?-?-?-?-?-?-?-?-?-?- 32w 3d 194 lb 6 oz 128/76 Nega tive -?-?-?-?-?-?-?-?-?-?-?-?- Negative 145 33 -?-?-?-?-?-?-?-?-?-?-?-?- JV- no lof, vagi nal bleeding, or dec fm. scheduled with 11/06 JV- no lof, vaginal bleeding , or dec fm. scheduled with 11/06. hg is now 10.4, plan to double up on iron. she is not interested in returning to the lab for iron studies. 10/03/22 -?-?-?-?-?-?-?-?-?-?-?-?- 34w 1d 196 lb 8 oz 119/71 -?-?-?-?-?-?-?-?-?-?-?-?- 140 35 Breech -?-?-?-?-?-?-?-?-?-?-?-?- LC- no lof/vb/ct x. good fm. no concerns. 10/18/22 -?-?-?-?-?-?-?-?-?-?-?-?- 36w 2d 201 lb 138/90 -?-?-?-?-?-?-?-?-?-?-?-?- 145 40 Cephalic -?-?-?-?-?-?-?-?-?-?-?-?- SM- no vb lof go od fm no regular ctx gbs done 10/26/22 -?-?-?-?-?-?-?-?-?-?-?-?- 37w 3d 201 lb 6 oz 121/72 -?-?-?-?-?-?-?-?-?-?-?-?- 145 41 Cephalic -?-?-?-?-?-?-?-?-?-?-?-?- SM- no vb lof go od fm no regular ctx discussed earlier delivery nst today due to developed polyhyramnios, ROS Constitutional Constitutional: Denies change in weight, fatigue, fever(s), headache(s), poor a ppetite or weakness Eyes Eyes: Denies blurry vision, change in vision, seeing flashes or spots in vision ENT HEENT: Denies dizziness, headache(s), loss taste/smell or sore throat Cardiovascular Cardiovascular: Denies chest pain, dizziness, dyspnea, irregular heart rhythm, leg edema, palpitations, rapid heart rate or vomiting Respiratory/Chest Respiratory/Chest: Denies chest tightness, cough, dyspnea or breast pain Gastrointestinal Gastrointestinal: Denies abdominal pain, anorexia, constipation, cramping, diarrhea, hemorrhoids, vomiting or weight changes Genitourinary Genitourinary: Denies dysuria, flank pain, genital lesions, genital pain, urinary frequency or urinary urgency Musculoskeletal Musculoskeletal: Denies back pain, difficulty walking, joint pain, limited range of motion, muscle cramps or numbness Integumentary Integumentary: Denies lesions or unusual bruising Neurologic Neurologic: Denies abnormal movements, abnormal speech, dizziness, numbness, seizure-like activity or syncope Psychiatric Psychiatric: Denies anxiety, behavioral changes, change in appetite, change in libido, cognitive impairment, confusion, depression, difficulty concentrating, hallucinations or suicidal thoughts Endocrine Endocrinology: Denies excessive sweating, polydipsia or polyuria Hematologic/Lymphatic Hematologic/Lymphatic: Denies easy bleeding, easy bruising or lymphadenopathy Allergic/Immunologic Allergic/Immunologic: Denies itchy eyes, lip swelling, seasonal rhinorrhea, rhinitis, throat swelling, tongue swelling, eczemia, wheezing or asthma Vital Signs Vital Signs Vital Signs: 10/31/22 10:45 10/31/22 10:45 10/31/22 10:45 Temperature Pulse Rate 96 Blood Pressure 124/81 H BP Systolic 124 BP Diastolic 81 Pulse Ox 98 10/31/22 10:48 Temperature 98.6 F Pulse Rate Blood Pressure BP Systolic BP Diastolic Pulse Ox Weight Weight: 200 lb Body Mass Index (BMI) 33.3 Physical Exam Const alert, oriented x3, no apparent distress and healthy appearing General Appearance: cooperative; Negative for anxious HEENT normocephalic Face and Sinus: normal facial exam Eyes EOMs intact bilaterally and no scleral icterus General Eye: normal appearance of both eyes Neck full ROM and supple Lymph Lymphatic: no lymphadenopathy noted Chest Chest: abnormal inspection of the chest Resp normal respiratory effort Effort and Inspection: able to speak in complete sentences Cardio regular rate GI soft to palpation and non-tender Inspection: gravid Palpation: soft; Negative for tender Back/Spine no CVA tenderness Extremity normal to inspection, full ROM and no clubbing, cyanosis or edema General Extremity: Negative for calf tenderness or edema Skin Lesions: no lesions Rashes: no rashes Psych mental status grossly normal Labs Labs Labs: Blood Type A POSITIVE Antibody Screen NEGATIVE Hct 34.2 % (37-47) L Hgb 11.3 g/dL (12.0-15.0) L Obstetrics US Syphilis Total Ab Non-reactive Rubella IgG Antibody Reactive (Nonreactive) Hep Bs Antigen Non-Reactive (Nonreactive) Chlamydia DNA (ARMANI) Negative (Negative) Neisseria gonorrhoeae DNA (ARMANI) Negative (Negative) HIV 1&2 Antibody Non-Reactive (Nonreactive) Glucose 1 Hr 50 gm 123 mg/dL (70-140) Group B Strep DNA Negative (Negative) Rhogam given: No Miscellaneous Test Assessment & Plan (1) Polyhydramnios affecting : (2) Circumvallate placenta during in first trimester, antepartum: COMMENT: growth US q 4 weeks. 09/20 79%. (3) Anemia affecting in third trimester: COMMENT: recommend iron, repeat cbc in 1 month (4) Family history of Downs syndrome: COMMENT: Husbands niece (5) History of recurrent miscarriages: COMMENT: 2 miscarriages, 06/22 @ 16 weeks( fetus stopped growing at 12weeks), 12/22 @ 12 weeks(gestational sac empty at 8 weeks) (6) Supervision of high risk , antepartum: COMMENT: PRR SONAM 11/13/22 surprise PC Tanya Gifford Aubrey Uriah (7) : QUALIFIERS: Weeks of gestation: 36 weeks Qualified Code(s): Z3A.36 - 36 weeks gestation of COMMENT: GBS neg, anatomy shows micrognathia- fu US and nl echo, no suspicion of micrognathia (8) Previous section: COMMENT: x 3 plan RLTCS. RLTSC BS scheduled for 10/31 @ 12 with JV PLAN: Plan After discussing the patient's diagnosis and treatment plan options, patient wishes to proceed with surgical management. I have discussed with the patient the risks, benefits, and alternatives of the procedure which include but are not limited to risks of anesthesia, bleeding, infection, possible damage to bowel, bladder, or surrounding vasculature which could lead to additional surgery to evaluate any complications. Patient agrees to procedure and wishes to proceed. plan for ERAS repeat with bilateral salpingectomy
[2022-10-31] MEDS: Oxytocin 15 Units/NS 250ml 15 UNITS/250 ML IV.SOLN 83 UNITS IV (13:25)
--- NOTE | 2022-10-31 13:44 | EX.PCM.OBRPT ---
Assessment & Plan (1) Polyhydramnios affecting : (2) Circumvallate placenta during in first trimester, antepartum: COMMENT: growth US q 4 weeks. 09/20 79%. (3) Anemia affecting in third trimester: COMMENT: recommend iron, repeat cbc in 1 month (4) Family history of Downs syndrome: COMMENT: Husbands niece (5) History of recurrent miscarriages: COMMENT: 2 miscarriages, 06/22 @ 16 weeks( fetus stopped growing at 12weeks), 12/22 @ 12 weeks(gestational sac empty at 8 weeks) (6) Supervision of high risk , antepartum: COMMENT: PRR SONAM 11/13/22 surprise PC Balta, Tanya, Alexandru Uriah (7) : QUALIFIERS: Weeks of gestation: 36 weeks Qualified Code(s): Z3A.36 - 36 weeks gestation of COMMENT: GBS neg, anatomy shows micrognathia- fu US and nl echo, no suspicion of micrognathia (8) Previous section: COMMENT: x 3 plan RLTCS. 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 Spinal anesthesia was placed without difficulty. Borrego catheter was placed. The patient was placed in the dorsal supine position with leftward tilt. Patient was prepped and draped in the normal sterile fashion. Pfannenstiel skin incision was made with the scalpel and carried through to the underlying layer of fascia with the scalpel. Fascia was nicked in the midline and the incision extended laterally. The rectus bellies were dissected off superiorly and inferiorly with out complication both sharply and bluntly. The peritoneum was entered digitally. The incision was stretched and a low transverse uterine incision was made with the scalpel. The infant's head was delivered atraumatically followed by the anterior and posterior shoulders without complication the rest of the infant delivered. The cord was clamped and cut and the infant was handed off to awaiting nurse. The placenta was delivered spontaneously immediately following and was noted to be intact and have a three-vessel cord. The uterus was exteriorized cleared of all clots and debris, and the incision was closed in a double layer closure using #1 Vicryl and #1 Monocryl. The ovaries and fallopian tubes were noted to be within normal limits. The right fallopian tube was grasped with a linda clamp and the underlying mesosalpinx was cauterized and cut to the level of the cornua and removed entirely. The same procedure was performed on the opposite side. The uterus was examined and found to have a window opening at the fundus that was not bleeding. This was hemostatic and did not extend through to the endometrium. The uterus was returned to the maternal abdomen and gutters were cleared of all clots and debris. The peritoneum was closed with 3-0 Monocryl in a running fashion. Gloves were changed prior to fascial closure. Fascia was closed with 0 PDS in a running fashion. Subcutaneous tissue was copiously irrigated and the skin was closed with 3-0 Monocryl in a subcuticular fashion. Mepilex dressing was applied without complication. Patient was taken to recovery in stable condition. Presentation: Positive for Vertex Amniotic Membrane Rupture Type: Artificial Amniotic Fluid Description: Clear Placental Delivery Description: Manual Removal Placenta Disposition: [facility] Cord Vessel Description: 3 Vessels Cord Entanglement: Around neck x 1, loose A Gender: Male (1 minute): 8 (5 minute): 9 Delayed Cord Clamping: Yes Complications Risks of Surgery Discussed w/Patient: Bleeding, Anesthesia Risks, Infection, Need for Future C-Sections, Permanency, Failure Rate of 1 to 2%, Injury to surrounding structure(s) including bowel and bladder and Availability of other non-permanent control options Multi Select Codes Urinary/Genital Urinary/Genital CPT Codes: 14683 Delivery [facility]
[2022-10-31] MEDS: Ketorolac 30 MG/ML Syringe IV ×2 (14:33→20:17)
--- NOTE | 2022-10-31 14:39 | DCINST_ITS ---
Discharge Instructions Diet Discharge Diet: No restrictions Activity Discharge Activity: May Not Drive (for 2 weeks or while taking narcotic pain medications.), May Shower and May Take a Tub Bath (in 7 days.) May resume sexual activity in: 4-6 weeks Weight Bearing Status: Full weight bearing Lifting Restrictions: 20 pounds Dressing / Incision Call your doctor if your incision/area has: Continuous Slow Oozing, Sudden Increased Bleeding, Increased Pain/ Swelling, Increased Redness and Foul Smelling Discharge Call your doctor if you observe: Fever of 101 or Higher and Using more than 1 pad per hour Suture Line Care: Avoid Pulling/Pushing and Avoid Pinching/Bending Cleanse incision/area with: Soap & Water and Keep Dressing Clean & Dry Follow Up Care Please Follow Up With: Paige Delaney DO When: Call [phone] to make an appointment for an incision check in 1-2 weeks. Test Results: Test results from this visit will be discussed in further detail at your follow- up appointment, if applicable. Discharge Plan Admission Admit Date/Time: 10/31/22 10:10 Primary Reason for Your Visit: section Attending Provider: Paige Delaney Primary Care Provider: Care Physician,No Primary Discharge Orders/Prescriptions Prescriptions: New ibuprofen 800 mg tablet 800 mg PO Q8H PRN (Reason: pain) Qty: 30 0RF Continued PNV-DHA 27 mg iron-1 mg -300 mg capsule 1 cap PO DAILY ferrous sulfate 27 mg iron tablet 27 mg PO DAILY Referrals / Follow Up: Care Physician,No Primary [Primary Care Provider] - Disposition Disposition (needs filled in before D/C Order can be placed): Home, Self Care
[2022-10-31] MEDS: Lactated Ringers 1,000 ML 100 ML IV (16:44)
--- NOTE | 2022-10-31 22:44 | NURSING ---
17 [place] Urinary catheter present upon start of this RN shift. Urinary catheter removed on 10/31/2022 at 2135, catheter balloon was deflated, 10 ml of normal saline was taken out at this time. No criteria met to keep urinary catheter.
[2022-11-01] MEDS: Acetaminophen 500 MG Tablet 1000 MG PO ×4 (00:18→19:48)
[2022-11-01 00:23] VITALS: BP 121/67; PULSE 98; RESP 16; O2SAT 98
[2022-11-01] MEDS: Ketorolac 30 MG/ML Syringe IV ×2 (01:56→08:41)
[2022-11-01] MEDS: 0.9% Saline Lock 10 ML Syringe IV ×2 (01:57→08:42)
[2022-11-01 04:11] VITALS: BP 96/48; PULSE 84; RESP 16; O2SAT 97
[2022-11-01 06:12] LABS: Hematocrit 28.4 % (37-47); Hemoglobin 9.2 g/dL (12.0-15.0); Mean Corp Hgb Conc 32.4 g/dL (32-36); Mean Corpuscular Hgb 30.9 pg (27.0-32.0); Mean Corpuscular Volume 95.3 fL (81-99); Mean Platelet Vol. 10.7 fl (6.2-12.0); Platelet Count 129 K/mm3 (150-450); RBC Distribution Width CV 13.5 % (11.6-14.6); RBC Distribution Width SD 46.5 fl (35.1-43.9); Red Blood Count 2.98 M/mm3 (4.2-5.4); White Blood Count 6.2 K/mm3 (4.4-11.0)
--- NOTE | 2022-11-01 08:13 | PN.OBGYN_ITS ---
Subjective Subjective Patient doing well without complaints. Tolerating PO. Ambulating and voiding without difficulty. feeding well. Denies chest pain, shortness of breath, calf pain/swelling, fevers, chills, lightheadedness. Objective Data Objective Data Vital Signs: Vital Signs Temp Pulse Resp BP Pulse Ox O2 Del Method 98.2 F 84 16 96/48 L 97 Room Air 10/31/22 21:30 11/01/22 04:11 11/01/22 04:11 11/01/22 04:11 11/01/22 04:11 11/01/22 04:11 Oxygen Delivery Method Room Air Weight: 200 lb Body Mass Index (BMI) 33.3 Intake & Output: Intake and Output for Last 24 Hours 10/30/22 10/31/22 11/01/22 23:59 23:59 23:59 Intake Total 3215.83 / 3215.83 Output Total 1000 / 1000 Balance 2215.83 / 2215.83 Lab / Micro Data 11/01/22 06:05 Labs: Laboratory Results - last 24 hr 10/31/22 10:32: WBC 6.6, RBC 3.66 L, Hgb 11.3 L, Hct 34.2 L, MCV 93.4, MCH 30.9, MCHC 33.0, RDW Std Deviation 45.1 H, RDW Coeff of Nae 13.2, Plt Count 177, MPV 11.5, Immature Gran % (Auto) 0.500, Neut % (Auto) 71.0 H, Lymph % (Auto) 21.3, [place] % (Auto) 6.1, Eos % (Auto) 0.8, Baso % (Auto) 0.3, Absolute Neuts (auto) 4.7, Absolute Lymphs (auto) 1.40, Nucleated RBC % 0, Syphilis Total Ab Non- reactive, Blood Type A POSITIVE, Antibody Screen NEGATIVE 11/01/22 06:05: WBC 6.2, RBC 2.98 L, Hgb 9.2 L, Hct 28.4 L, MCV 95.3, MCH 30.9, MCHC 32.4, RDW Std Deviation 46.5 H, RDW Coeff of Nae 13.5, Plt Count 129 L, MPV 10.7 ROS Constitutional Constitutional: Reports systems reviewed and no addt'l complaints, except as documented Cardiovascular Cardiovascular: Reports systems reviewed and no addt'l complaints, except as documented Respiratory/Chest Respiratory/Chest: Reports systems reviewed and no addt'l complaints, except as documented Gastrointestinal Gastrointestinal: Reports systems reviewed and no addt'l complaints, except as documented Physical Exam Const alert, oriented x3 and no apparent distress HEENT Head and Scalp: atraumatic Resp normal respiratory effort GI soft to palpation and non-tender Inspection: incision intact, healing well and drainage (none) Bimanual Exam - Vag & Uterus: uterus non-tender Uterus Palpation: uterus fundus firm (below Umbilicus) Assessment & Plan (1) delivery delivered: PLAN: Plan s/p LTCS PPD # 1 1. routine post care 2. breast feeding- support given 3. rh positive 4. rubella immune
[2022-11-01] MEDS: Prenatal Vits Tablet 1 TABLET PO (08:41)
[2022-11-01] MEDS: Senna/Docusate Sodium 1 Tablet PO (08:42)
[2022-11-01 08:55] VITALS: BP 122/81; PULSE 77; RESP 16; TEMP 36.8
[2022-11-01 12:00] VITALS: BP 106/62; PULSE 77; RESP 18; TEMP 36.8
[2022-11-01] MEDS: Ferrous Sulfate 325 MG Tablet PO (13:18)
[2022-11-01] MEDS: Naproxen 500 MG Tablet PO ×2 (15:21→23:08)
[2022-11-01 16:00] VITALS: BP 111/60; PULSE 79; RESP 16; TEMP 36.7
[2022-11-01 19:58] VITALS: BP 130/52; PULSE 80; RESP 16; TEMP 36.2
[2022-11-02] MEDS: Acetaminophen 500 MG Tablet 1000 MG PO ×2 (01:26→07:25)
[2022-11-02 01:27] VITALS: BP 112/63; PULSE 73; RESP 16; TEMP 36.6
[2022-11-02] MEDS: Naproxen 500 MG Tablet PO (07:25)
[2022-11-02 07:43] VITALS: BP 115/70; PULSE 82; RESP 15; TEMP 36.8; O2SAT 98
--- NOTE | 2022-11-02 07:49 | PN.OBGYN_ITS ---
Subjective Subjective Patient doing well without complaints. Tolerating PO. Ambulating and voiding without difficulty. Feeding well. Denies chest pain, shortness of breath, calf pain/swelling, fevers, chills, lightheadedness. Objective Data Objective Data Vital Signs: Vital Signs Temp Pulse Resp BP Pulse Ox O2 Del Method 98.2 F 82 15 115/70 98 Room Air 11/02/22 07:43 11/02/22 07:43 11/02/22 07:43 11/02/22 07:43 11/02/22 07:43 11/02/22 07:43 Oxygen Delivery Method Room Air Weight: 200 lb Body Mass Index (BMI) 33.3 Intake & Output: Intake and Output for Last 24 Hours 10/31/22 11/01/22 11/02/22 23:59 23:59 23:59 Intake Total 3215.83 / 3215.83 Output Total 1000 / 1000 Balance 2215.83 / 2215.83 Lab / Micro Data Attestation: I reviewed the patient's lab results. 11/01/22 06:05 ROS Constitutional Constitutional: Reports systems reviewed and no addt'l complaints, except as documented; Denies anorexia or headache(s) Cardiovascular Cardiovascular: Reports systems reviewed and no addt'l complaints, except as documented; Denies dizziness, dyspnea, nausea or tachypnea Respiratory/Chest Respiratory/Chest: Reports systems reviewed and no addt'l complaints, except as documented; Denies cough, dyspnea, shortness of breath at rest or tachypnea Gastrointestinal Gastrointestinal: Reports systems reviewed and no addt'l complaints, except as documented; Denies abdominal pain, constipation or nausea Genitourinary Genitourinary: Reports systems reviewed and no addt'l complaints, except as documented; Denies burning urination, difficulty urinating, dysuria, urinary frequency or urinary incontinence Musculoskeletal Musculoskeletal: Reports systems reviewed and no addt'l complaints, except as documented Integumentary Integumentary: Reports systems reviewed and no addt'l complaints, except as documented Neurologic Neurologic: Reports systems reviewed and no addt'l complaints, except as doc umented; Denies abnormal speech, dizziness or headache(s) Psychiatric Psychiatric: Reports systems reviewed and no addt'l complaints, except as documented Endocrine Endocrinology: Reports systems reviewed and no addt'l complaints, except as documented Hematologic/Lymphatic Hematologic/Lymphatic: Reports systems reviewed and no addt'l complaints, except as documented Physical Exam Const alert, oriented x3 and no apparent distress Neck full ROM Resp normal respiratory effort, normal air movement and no retractions Effort and Inspection: able to speak in complete sentences and symmetric chest movement GI soft to palpation Inspection: incision intact Bladder / Kidney Exam: bladder normal to palpation Uterus Palpation: uterus fundus firm Extremity normal to inspection and full ROM Psych mental status grossly normal, thought process normal and cooperative Assessment & Plan (1) delivery delivered: PLAN: s/p LTCS PPD # 2 1. routine post care 2. breast feeding- support given 3. rh positive 4. rubella immune 5. discharge home Charges/Coding Multi Select Codes Urinary/Genital Urinary/Genital CPT Codes: No Charge
--- NOTE | 2022-11-02 07:50 | DCINST_ITS ---
Discharge Instructions Diet Discharge Diet: No restrictions Activity Discharge Activity: Return to Normal Activity May resume sexual activity in: 4-6 weeks Weight Bearing Status: Full weight bearing Dressing / Incision Call your doctor if your incision/area has: Continuous Slow Oozing, Sudden Increased Bleeding, Increased Pain/ Swelling, Increased Redness and Foul Smelling Discharge Call your doctor if you observe: Fever of 101 or Higher and Using more than 1 pad per hour Suture Line Care: Avoid Pulling/Pushing and Avoid Pinching/Bending Cleanse incision/area with: Soap & Water and Keep Dressing Clean & Dry Follow Up Care Please Follow Up With: Paige Delaney, When: Please call the office to schedule your follow up appointment in 6 weeks. If you had high blood pressure please call to schedule an appointment in 2 we eks. Test Results: Test results from this visit will be discussed in further detail at your follow- up appointment, if applicable. Discharge Plan Admission Admit Date/Time: 10/31/22 10:10 Primary Reason for Your Visit: section Attending Provider: Paige Delaney Primary Care Provider: Care Debby Beckford Primary Discharge Orders/Prescriptions Prescriptions: New naproxen 500 mg Tablet 500 mg PO Q8H 10 Days Qty: 20 0RF oxycodone 5 mg tablet 5 mg PO Q4H PRN PRN (Reason: Pain Score 4-10) 3 Days Qty: 10 0RF Rx Instructions: take for pain as needed every 4-6 hours Continued PNV-DHA 27 mg iron-1 mg -300 mg capsule 1 cap PO DAILY ferrous sulfate 27 mg iron tablet 27 mg PO DAILY No Action ibuprofen 800 mg tablet 800 mg PO Q8H PRN (Reason: pain) Qty: 30 0RF Referrals / Follow Up: Care PhysicianDebby Primary [Primary Care Provider] - Disposition Disposition (needs filled in before D/C Order can be placed): Home, Self Care
[2022-11-02 08:50] LABS: Pathology Specimen OB SEE PATHOLOGY REPORT
[2022-11-02] MEDS: Prenatal Vits Tablet 1 TABLET PO (09:30)
== END 2022-11-02 10:30 | disposition home or self-care (01) | DRG 785 ==
PROVIDERS: Admitting Provider Obstetrics & Gynecology; Visit Provider Obstetrics & Gynecology
PROC: 10D00Z1 Extraction of Products of Conception, Low, Open Approach (ICD-10-PCS; CPT 59514; principal; 2022-10-31 11:45)
DX: O40.3XX0 Polyhydramnios, third trimester, not applicable or unspecified (principal); O34.211 Maternal care for low transverse scar from previous cesarean delivery; O69.81X0 Labor and delivery complicated by cord around neck, without compression, not applicable or unspecified; Z30.2 Encounter for sterilization; Z3A.38 38 weeks gestation of pregnancy; Z37.0 Single live birth
CPT/HCPCS: 59025; 59050; 85025; 85027; 86780; 86850; 86900; 86901; 88302; 99221; J7120; A4216; G0378; J2405

== ENCOUNTER → 2022-12-11 | Outpatient (CLI) | payer SELFPAY ==
[2022-12-11 11:37] LABS: Absolute Lymphocyte Count 1.95 X10^3/uL (0.83-4.51); Absolute Neutrophil Count 3.6 X10^3/uL (2.0-7.7); Basophil# 0.02 X10^3/uL; Basophil% 0.3 % (0-1); Eosinophil# 0.18 X10^3/uL; Eosinophils% 2.9 % (0-5); Hematocrit 40.9 % (37-47); Hemoglobin 13.3 g/dL (12.0-15.0); Lymphocyte # 1.95 X10^3/ul (0.83-4.51); Lymphocyte % 31.4 % (19-41); Mean Corp Hgb Conc 32.5 g/dL (32-36); Mean Corpuscular Hgb 30.6 pg (27.0-32.0); Mean Platelet Vol. 10.2 fl (6.2-12.0); Monocyte# 0.45 X10^3/uL; Monocyte% 7.2 % (0-10); NRBC Flagged by Analyzer 0 % (0-5); Neutrophil # 3.61 X10^3/uL (2.7-7.7); Platelet Count 213 K/mm3 (150-450); RBC Distribution Width CV 12.1 % (11.6-14.6); RBC Distribution Width SD 41.8 fl (35.1-43.9); Red Blood Count 4.35 M/mm3 (4.2-5.4); White Blood Count 6.2 K/mm3 (4.4-11.0)
[2022-12-11 13:36] LABS: hCG Titer Quant., Serum 1 mIU/mL (1-3)
== END | disposition home or self-care (01) ==
LOC: PAVLAB 11:15
PROVIDERS: Referring Provider Obstetrics & Gynecology; Visit Provider Obstetrics & Gynecology
DX: N92.6 Irregular menstruation, unspecified (principal)
CPT/HCPCS: 36415; 84702; 85025